=== PATIENT | male | born 1965 | race Two or more races ===

== ENCOUNTER 2017-04-29 14:59 | Inpatient (IN) | payer OTHER ==
[~2017-04-29] VITALS: Ht 175.3 cm; Wt 188.2 kg
[2017-04-29] MEDS ORDERED: SODIUM CHLORIDE 0.9% 1,000 ML IV ONE (15:11)
[2017-04-29] MEDS ORDERED: NALOXONE HCL 1 MG/ML 2ML VIAL IV ONE (15:15)
[2017-04-29 15:47] LABS: BG BASE EXCESS -5.6 mmol/L (-2.0-2.0); BG CARBOXYHEMOGLOBIN 0.5 % (0.5-1.5); BG DEOXYHEMOGLOBIN 2.4 % (0.0-5.0); BG FRACTION INSPIRED OXYGEN 100; BG HCO3 ACT 25.4 mmol/L (22.0-26.0); BG METHEMOGLOBIN 0.5 % (0.0-1.5); BG OXYGEN SATURATION 97.6 % (92.0-98.5); BG OXYHEMOGLOBIN 96.6 % (94.0-97.0); BG PCO2 72.8 mmHg (35.0-45.0); BG PO2 125.6 mmHg (75.0-100.0); BG SAMPLE SITE RIGHT RADIAL; BG TOTAL HEMOGLOBIN 18.2 g/dL (12.0-18.0); BG VENT MODE MASK - NRB
[2017-04-29 15:58] LABS: INR 1.2; PROTHROMBIN TIME 12.9 sec (9.4-11.6)
[2017-04-29 16:03] LABS: AMMONIA 179 uMol/L (<32)
[2017-04-29 16:07] LABS: BASOPHILS % 0.7 % (0.0-2.0); EOSINOPHILS % 1.5 % (0.0-5.0); HEMATOCRIT. 50.4 % (42.0-52.0); LYMPHOCYTES % 23.8 % (20.0-50.0); MEAN CORPUSCULAR HEMOGLOBIN 30.7 pg (28.0-32.0); MEAN CORPUSCULAR VOLUME 91.1 fL (80.0-94.0); MEAN PLATELET VOLUME 9.3 fl (7.4-10.4); PLATELET 90 x1000/uL (130-400); RED BLOOD CELL COUNT 5.53 mill/uL (4.7-6.1); RED CELL DISTRIBUTION WIDTH 14.8 % (11.6-14.6)
[2017-04-29 16:08] LABS: CARBON DIOXIDE 27 mEq/L (21-32); CHLORIDE 108 mEq/L (98-107); CREATINE KINASE 158 IU/L (39-308); ETHANOL BLOOD < 10 mg/dL
[2017-04-29 16:10] LABS: TROPONIN I < 0.02 ng/mL (0.00-0.04)
[2017-04-29] MEDS ORDERED: KETAMINE HCL 50 MG/ML 10ML ONE (16:10)
[2017-04-29] MEDS ORDERED: PROPOFOL 10MG/ML 100ML 100 ML IV ONE ×4 (16:27→22:30)
[2017-04-29] MEDS ORDERED: VANCOMYCIN 1 G PREMIX 200 ML IV SCH (16:45)
[2017-04-29] MEDS ORDERED: PIPERACILLIN/TAZ 3.375G PREMIX 50 ML IV ONE (16:45)
[2017-04-29 17:01] LABS: CLARITY URINE CLOUDY (CLEAR); COLOR URINE DARK YELLOW (YELLOW); KETONES URINE TRACE (NEGATIVE); LEUKOCYTE ESTERASE URINE 2+ (NEGATIVE); NITRITE URINE NEGATIVE (NEGATIVE); OCCULT BLOOD URINE 1+ (NEGATIVE); PROTEIN URINE 3+ (NEGATIVE); SPECIFIC GRAVITY URINE 1.033 (1.005-1.030)
[2017-04-29 17:12] LABS: *AMPHETAMINES SCREEN URINE NEGATIVE (NEGATIVE); *BARBITURATES SCREEN URINE NEGATIVE (NEGATIVE); *BENZODIAZEPINES SCREEN URINE PRESUMTIVE POSITIVE (NEGATIVE); *COCAINE SCREEN URINE NEGATIVE (NEGATIVE); CANNABINOID URINE SCREEN NEGATIVE (NEGATIVE); METHADONE URINE SCREEN NEGATIVE (NEGATIVE); OPIATES URINE SCREEN PRESUMTIVE POSITIVE (NEGATIVE); PHENCYCLIDINE URINE SCREEN NEGATIVE (NEGATIVE)
[2017-04-29] MEDS ORDERED: KETAMINE HCL 50 MG/ML 10ML IM ONE (17:15)
[2017-04-29] MEDS ORDERED: KETAMINE HCL 50 MG/ML 10ML IV ONE (17:15)
[2017-04-29] MEDS ORDERED: VECURONIUM BROMIDE 10 MG/VIAL IV ONE (17:15)
[2017-04-29] MEDS ORDERED: ETOMIDATE 2MG/ML 10ML VIAL IV ONE (17:15)
[2017-04-29] MEDS ORDERED: SUCCINYLCHOLINE CHLORIDE 200MG/10ML VIAL IV ONE (17:15)
[2017-04-29] MEDS ORDERED: ACETAMINOPHEN 650MG SUPP PR PRN (19:45)
[2017-04-29] MEDS ORDERED: GUAIFENESIN 200MG/10ML SUGAR FREE UDC PO PRN (19:45)
[2017-04-29] MEDS ORDERED: DOCUSATE SODIUM 100MG CAPSULE PO PRN (19:45)
[2017-04-29] MEDS ORDERED: MAGNESIUM/ALUMINUM HYDROXIDE/SIMETHICONE 30ML UDC PO PRN (19:45)
[2017-04-29] MEDS ORDERED: NA PHOS,M-B/NA PHOS,DI-BA ENEMA 118ML PR PRN (19:45)
[2017-04-29] MEDS ORDERED: CLONIDINE 0.1MG TABLET PO PRN (19:45)
[2017-04-29] MEDS ORDERED: ONDANSETRON HCL 4MG/2ML VIAL IV PRN (19:45)
[2017-04-29 20:44] LABS: BG BASE EXCESS -1.2 mmol/L (-2.0-2.0); BG CARBOXYHEMOGLOBIN 0.5 % (0.5-1.5); BG DEOXYHEMOGLOBIN 3.5 % (0.0-5.0); BG FRACTION INSPIRED OXYGEN 40; BG HCO3 ACT 24.8 mmol/L (22.0-26.0); BG METHEMOGLOBIN 0.2 % (0.0-1.5); BG OXYGEN SATURATION 96.5 % (92.0-98.5); BG OXYHEMOGLOBIN 95.8 % (94.0-97.0); BG PCO2 46.2 mmHg (35.0-45.0); BG PH 7.348 (7.350-7.450); BG PO2 88.7 mmHg (75.0-100.0); BG SAMPLE SITE RIGHT RADIAL; BG TIDAL VOLUME(mL) 650 mL; BG TOTAL HEMOGLOBIN 14.6 g/dL (12.0-18.0); BG VENT MODE VENT - A/C; BG VENT RATE 14 set
[2017-04-29] MEDS ORDERED: LACTULOSE 20G/30ML UDC NG ONE (21:00)
[2017-04-30] VITALS (70 sets, daily range): BP systolic 116–179; BP diastolic 65–124
[2017-04-30 03:11] LABS: CREATINE KINASE MB FRACTION 1.2 ng/mL (0.5-3.6); TROPONIN I 0.09 ng/mL (0.00-0.04)
[2017-04-30] MEDS ORDERED: PROPOFOL 10MG/ML 100ML 100 ML IV SCH (03:45)
[2017-04-30] MEDS ORDERED: SUCCINYLCHOLINE CHLORIDE 200MG/10ML VIAL IV ONE (04:00)
[2017-04-30] MEDS ORDERED: VECURONIUM BROMIDE 10 MG/VIAL IV ONE (04:00)
[2017-04-30] MEDS ORDERED: STERILE WATER FOR INJECTION 10ML VIAL ONE (04:00)
[2017-04-30] MEDS ORDERED: ETOMIDATE 2MG/ML 10ML VIAL IV ONE (04:00)
[2017-04-30] MEDS ORDERED: PROPOFOL 10MG/ML 100ML 100 ML IV PRN (05:15)
[2017-04-30] MEDS ORDERED: HYDR-4009 PO (05:37)
[2017-04-30] MEDS ORDERED: TIZA4TAB4 PO (05:37)
[2017-04-30] MEDS ORDERED: PROT20 PO (05:37)
[2017-04-30] MEDS ORDERED: FURO80TA87 PO (05:37)
[2017-04-30] MEDS ORDERED: CARI350T PO (05:37)
[2017-04-30] MEDS ORDERED: ALD100 PO (05:37)
[2017-04-30] MEDS ORDERED: POTA10CA42 PO (05:37)
[2017-04-30] MEDS ORDERED: [UNRECOGNIZED DRUG - OTHER] PO (05:37)
[2017-04-30] MEDS ORDERED: LACTULOSE 20G/30ML UDC PO SCH (06:00)
[2017-04-30 06:10] LABS: BASOPHILS % 1.1 % (0.0-2.0); EOSINOPHILS % 2.2 % (0.0-5.0); HEMATOCRIT. 44.2 % (42.0-52.0); HEMOGLOBIN. 15.3 g/dL (14.0-18.0); LYMPHOCYTES % 27.6 % (20.0-50.0); MEAN CORPUSCULAR HEMOGLOBIN 31.5 pg (28.0-32.0); MEAN CORPUSCULAR VOLUME 91.1 fL (80.0-94.0); MEAN PLATELET VOLUME 9.3 fl (7.4-10.4); MONOCYTES % 6.2 % (2.0-8.0); NEUTROPHILS % 62.9 % (40.0-76.0); PLATELET 63 x1000/uL (130-400); RED BLOOD CELL COUNT 4.85 mill/uL (4.7-6.1); RED CELL DISTRIBUTION WIDTH 14.5 % (11.6-14.6)
[2017-04-30 06:36] LABS: CARBON DIOXIDE 26 mEq/L (21-32); CHLORIDE 111 mEq/L (98-107); CREATINE KINASE 270 IU/L (39-308); HDL CHOLESTEROL 24 mg/dL (40-59); LDL CHOLESTEROL 47 mg/dL (5-100)
[2017-04-30 06:39] LABS: CREATINE KINASE MB FRACTION 1.8 ng/mL (0.5-3.6); TROPONIN I 0.07 ng/mL (0.00-0.04)
[2017-04-30] MEDS: SODIUM CHLORIDE 0.9% INJ 3ML FLUSH IVF SCH ×3 (06:46→21:35)
[2017-04-30] MEDS: DEXT 5%/0.45% NACL 1000ML 1,000 ML IV SCH (06:47)
[2017-04-30] MEDS: IPRATROPIUM/ALBUTEROL 0.5-3(2.5)MG/3ML NEB INH PRN ×3 (07:55→20:26)
[2017-04-30] MEDS: FOLIC ACID 1MG TABLET PO SCH (07:58)
[2017-04-30] MEDS: THIAMINE HCL 100MG TABLET PO SCH (07:59)
[2017-04-30] MEDS: ACETAMINOPHEN 650MG/20.3ML UDC PO PRN ×2 (07:59→15:42)
[2017-04-30] MEDS ORDERED: PANTOPRAZOLE SODIUM 40 MG/VIAL IV ONE (09:00)
[2017-04-30] MEDS ORDERED: FENTANYL CITRATE/PF 500 MCG in SODIUM CHLORIDE 0.9% 40 ML IV PRN (09:00)
[2017-04-30 09:07] LABS: BG BASE EXCESS -1.5 mmol/L (-2.0-2.0); BG CARBOXYHEMOGLOBIN 0.7 % (0.5-1.5); BG DEOXYHEMOGLOBIN 7.1 % (0.0-5.0); BG FRACTION INSPIRED OXYGEN 40; BG HCO3 ACT 24.3 mmol/L (22.0-26.0); BG METHEMOGLOBIN 0.5 % (0.0-1.5); BG OXYGEN SATURATION 92.8 % (92.0-98.5); BG OXYHEMOGLOBIN 91.7 % (94.0-97.0); BG PCO2 44.7 mmHg (35.0-45.0); BG PH 7.353 (7.350-7.450); BG PO2 68.7 mmHg (75.0-100.0); BG SAMPLE SITE RIGHT RADIAL; BG TIDAL VOLUME(mL) 550 mL; BG TOTAL HEMOGLOBIN 15.3 g/dL (12.0-18.0); BG VENT MODE VENT - A/C; BG VENT RATE 14 set
[2017-04-30] MEDS ORDERED: CEFEPIME 2,000 MG in DEXT 5% WATER 100 ML IV SCH (09:15)
[2017-04-30] MEDS ORDERED: CEFEPIME 2,000 MG in DEXTROSE 5% WATER 50 ML IV SCH (09:30)
[2017-04-30] MEDS: MIDAZOLAM HCL 50 MG in DEXTROSE 5% WATER 40 ML IV PRN ×2 (09:57→12:19)
[2017-04-30] MEDS: METRONIDAZOLE 500 MG PREMIX 100 ML IV SCH ×2 (09:57→17:25)
[2017-04-30] MEDS: PANTOPRAZOLE SODIUM 40 MG/VIAL IV SCH (10:00)
[2017-04-30] MEDS: DIPHENHYDRAMINE 50MG/ML VIAL IV PRN (12:00)
[2017-04-30] MEDS: CEFEPIME 2,000 MG in DEXTROSE 5% WATER 50 ML IV SCH (12:22)
[2017-04-30] MEDS: LACTULOSE 20G/30ML UDC PO SCH ×2 (14:41→21:35)
[2017-04-30] MEDS ORDERED: MIDAZOLAM HCL 100 MG in DEXT 5% WATER 80 ML IV PRN (14:45)
[2017-04-30] MEDS: FENTANYL CITRATE/PF 1,000 MCG in SODIUM CHLORIDE 0.9% 80 ML IV PRN (15:09)
[2017-04-30] MEDS: MIDAZOLAM HCL 100 MG in SODIUM CHLORIDE 0.9% 80 ML IV PRN (20:32)
[2017-05-01] VITALS (58 sets, daily range): BP systolic 123–174; BP diastolic 62–104
[2017-05-01] MEDS: CEFEPIME 2,000 MG in DEXTROSE 5% WATER 50 ML IV SCH ×2 (00:01→12:05)
[2017-05-01] MEDS: DIPHENHYDRAMINE 50MG/ML VIAL IV PRN ×2 (00:44→07:09)
[2017-05-01] MEDS: FENTANYL CITRATE/PF 1,000 MCG in SODIUM CHLORIDE 0.9% 80 ML IV PRN ×3 (01:00→22:16)
[2017-05-01] MEDS: MIDAZOLAM HCL 100 MG in SODIUM CHLORIDE 0.9% 80 ML IV PRN ×5 (01:46→23:57)
[2017-05-01] MEDS: METRONIDAZOLE 500 MG PREMIX 100 ML IV SCH ×3 (02:23→17:13)
[2017-05-01] MEDS: DEXT 5%/0.45% NACL 1000ML 1,000 ML IV SCH (02:24)
[2017-05-01 06:15] LABS: AMMONIA 57 uMol/L (<32)
[2017-05-01] MEDS: LACTULOSE 20G/30ML UDC PO SCH ×3 (06:21→21:07)
[2017-05-01] MEDS: SODIUM CHLORIDE 0.9% INJ 3ML FLUSH IVF SCH ×3 (06:21→22:00)
[2017-05-01] MEDS: PANTOPRAZOLE SODIUM 40 MG/VIAL IV SCH (08:14)
[2017-05-01] MEDS: THIAMINE HCL 100MG TABLET PO SCH (08:14)
[2017-05-01] MEDS: ACETAMINOPHEN 650MG/20.3ML UDC PO PRN ×3 (08:14→20:59)
[2017-05-01] MEDS: FOLIC ACID 1MG TABLET PO SCH (08:14)
[2017-05-01 08:47] LABS: BG BASE EXCESS 0.1 mmol/L (-2.0-2.0); BG CARBOXYHEMOGLOBIN 0.4 % (0.5-1.5); BG DEOXYHEMOGLOBIN 4.8 % (0.0-5.0); BG FRACTION INSPIRED OXYGEN 40; BG HCO3 ACT 24.6 mmol/L (22.0-26.0); BG METHEMOGLOBIN 0.1 % (0.0-1.5); BG OXYGEN SATURATION 95.2 % (92.0-98.5); BG OXYHEMOGLOBIN 94.7 % (94.0-97.0); BG PCO2 39.7 mmHg (35.0-45.0); BG SAMPLE SITE RIGHT RADIAL; BG TIDAL VOLUME(mL) 550 mL; BG TOTAL HEMOGLOBIN 14.5 g/dL (12.0-18.0); BG VENT MODE VENT - A/C; BG VENT RATE 14 set
[2017-05-01] MEDS: PROPOFOL 10MG/ML 100ML 100 ML IV PRN ×3 (10:27→21:37)
[2017-05-01 15:06] LABS: BG BASE EXCESS -0.1 mmol/L (-2.0-2.0); BG CARBOXYHEMOGLOBIN 0.7 % (0.5-1.5); BG DEOXYHEMOGLOBIN 4.5 % (0.0-5.0); BG FRACTION INSPIRED OXYGEN 40; BG HCO3 ACT 25.2 mmol/L (22.0-26.0); BG METHEMOGLOBIN 0.2 % (0.0-1.5); BG OXYGEN SATURATION 95.5 % (92.0-98.5); BG OXYHEMOGLOBIN 94.6 % (94.0-97.0); BG PH 7.385 (7.350-7.450); BG PO2 77.1 mmHg (75.0-100.0); BG PRESSURE SUPPORT 12; BG SAMPLE SITE RIGHT RADIAL; BG TIDAL VOLUME(mL) 550 mL; BG TOTAL HEMOGLOBIN 14.4 g/dL (12.0-18.0); BG VENT MODE VENT - SIMV; BG VENT RATE 8 set
[2017-05-01] MEDS: QUETIAPINE FUMARATE 25MG TABLET NG SCH (20:54)
[2017-05-02] VITALS (40 sets, daily range): BP systolic 120–151; BP diastolic 66–88
[2017-05-02] MEDS: DEXT 5%/0.45% NACL 1000ML 1,000 ML IV SCH
[2017-05-02] MEDS: CEFEPIME 2,000 MG in DEXTROSE 5% WATER 50 ML IV SCH ×2 (01:06→13:10)
[2017-05-02] MEDS: METRONIDAZOLE 500 MG PREMIX 100 ML IV SCH ×3 (02:34→17:55)
[2017-05-02] MEDS: MIDAZOLAM HCL 100 MG in SODIUM CHLORIDE 0.9% 80 ML IV PRN (04:48)
[2017-05-02] MEDS: PROPOFOL 10MG/ML 100ML 100 ML IV PRN (04:52)
[2017-05-02] MEDS: SODIUM CHLORIDE 0.9% INJ 3ML FLUSH IVF SCH ×2 (05:07→13:11)
[2017-05-02] MEDS: LACTULOSE 20G/30ML UDC PO SCH ×3 (05:07→21:32)
[2017-05-02 05:12] LABS: BASOPHILS % 0.5 % (0.0-2.0); EOSINOPHILS % 4.3 % (0.0-5.0); HEMATOCRIT. 41.2 % (42.0-52.0); HEMOGLOBIN. 13.9 g/dL (14.0-18.0); LYMPHOCYTES % 15.2 % (20.0-50.0); MEAN CORPUSCULAR HEMOGLOBIN 30.7 pg (28.0-32.0); MEAN CORPUSCULAR VOLUME 90.8 fL (80.0-94.0); MEAN PLATELET VOLUME 8.7 fl (7.4-10.4); MONOCYTES % 8.5 % (2.0-8.0); NEUTROPHILS % 71.5 % (40.0-76.0); RED BLOOD CELL COUNT 4.53 mill/uL (4.7-6.1); RED CELL DISTRIBUTION WIDTH 14.5 % (11.6-14.6)
[2017-05-02 05:55] LABS: CARBON DIOXIDE 27 mEq/L (21-32); CHLORIDE 114 mEq/L (98-107)
[2017-05-02 06:04] LABS: PLATELET 45 x1000/uL (130-400)
[2017-05-02 06:11] LABS: AMMONIA 100 uMol/L (<32)
[2017-05-02] MEDS: FENTANYL CITRATE/PF 1,000 MCG in SODIUM CHLORIDE 0.9% 80 ML IV PRN (07:04)
[2017-05-02] MEDS: THIAMINE HCL 100MG TABLET PO SCH (08:24)
[2017-05-02] MEDS: FOLIC ACID 1MG TABLET PO SCH (08:24)
[2017-05-02] MEDS: QUETIAPINE FUMARATE 25MG TABLET NG SCH ×2 (08:24→21:32)
[2017-05-02] MEDS: PANTOPRAZOLE SODIUM 40 MG/VIAL IV SCH (08:24)
[2017-05-02] MEDS ORDERED: DEXTROSE 50% WATER 50ML SYRINGE IV PRN (08:30)
[2017-05-02] MEDS: BLOOD SUGAR DIAGNOSTIC STRIP TEST SCH ×2 (13:09→17:34)
[2017-05-02] MEDS: INSULIN LISPRO 100 UNITS/ML SUBCUT SCH ×3 (13:15→21:00)
[2017-05-02 14:53] LABS: BG BASE EXCESS -0.1 mmol/L (-2.0-2.0); BG CARBOXYHEMOGLOBIN 0.6 % (0.5-1.5); BG HCO3 ACT 23.7 mmol/L (22.0-26.0); BG METHEMOGLOBIN 0.2 % (0.0-1.5); BG OXYHEMOGLOBIN 95.2 % (94.0-97.0); BG PCO2 36.3 mmHg (35.0-45.0); BG PH 7.433 (7.350-7.450); BG PO2 76.9 mmHg (75.0-100.0); BG SAMPLE SITE RIGHT RADIAL; BG TIDAL VOLUME(mL) 550 mL; BG TOTAL HEMOGLOBIN 14.8 g/dL (12.0-18.0); BG VENT MODE VENT - SIMV; BG VENT RATE 8 set
[2017-05-02] MEDS: IPRATROPIUM/ALBUTEROL 0.5-3(2.5)MG/3ML NEB INH PRN (19:51)
[2017-05-02] MEDS: ACETAMINOPHEN 650MG/20.3ML UDC PO PRN (21:32)
[2017-05-03] VITALS (39 sets, daily range): BP systolic 96–152; BP diastolic 57–92
[2017-05-03] MEDS: SODIUM CHLORIDE 0.9% INJ 3ML FLUSH IVF SCH ×4 (00:27→20:26)
[2017-05-03] MEDS: CEFEPIME 2,000 MG in DEXTROSE 5% WATER 50 ML IV SCH ×2 (00:27→11:26)
[2017-05-03] MEDS: METRONIDAZOLE 500 MG PREMIX 100 ML IV SCH ×3 (02:50→17:44)
[2017-05-03] MEDS: IPRATROPIUM/ALBUTEROL 0.5-3(2.5)MG/3ML NEB INH PRN ×3 (03:56→15:09)
[2017-05-03 06:21] LABS: AMMONIA 93 uMol/L (<32)
[2017-05-03] MEDS: LACTULOSE 20G/30ML UDC PO SCH ×3 (06:21→20:25)
[2017-05-03 07:36] LABS: BASOPHILS % 1.7 % (0.0-2.0); EOSINOPHILS % 4.7 % (0.0-5.0); HEMATOCRIT. 42.3 % (42.0-52.0); HEMOGLOBIN. 14.2 g/dL (14.0-18.0); LYMPHOCYTES % 21.1 % (20.0-50.0); MEAN CORPUSCULAR HEMOGLOBIN 30.9 pg (28.0-32.0); MEAN CORPUSCULAR VOLUME 92.1 fL (80.0-94.0); MEAN PLATELET VOLUME 9.1 fl (7.4-10.4); MONOCYTES % 7.8 % (2.0-8.0); NEUTROPHILS % 64.7 % (40.0-76.0); PLATELET 56 x1000/uL (130-400); RED CELL DISTRIBUTION WIDTH 14.5 % (11.6-14.6)
[2017-05-03] MEDS: BLOOD SUGAR DIAGNOSTIC STRIP TEST SCH ×2 (08:13→17:37)
[2017-05-03] MEDS: QUETIAPINE FUMARATE 25MG TABLET NG SCH ×3 (08:13→20:25)
[2017-05-03] MEDS: THIAMINE HCL 100MG TABLET PO SCH (08:21)
[2017-05-03] MEDS: PANTOPRAZOLE SODIUM 40 MG/VIAL IV SCH (08:21)
[2017-05-03] MEDS: FOLIC ACID 1MG TABLET PO SCH (08:21)
[2017-05-03] MEDS: INSULIN LISPRO 100 UNITS/ML SUBCUT SCH ×2 (08:24→17:49)
[2017-05-03] MEDS: FENTANYL CITRATE/PF 1,000 MCG in SODIUM CHLORIDE 0.9% 80 ML IV PRN ×2 (09:00→23:02)
[2017-05-03 10:56] LABS: CARBON DIOXIDE 23 mEq/L (21-32); CHLORIDE 114 mEq/L (98-107); PHOSPHORUS 1.7 mg/dL (2.5-4.9)
[2017-05-03] MEDS ORDERED: FUROSEMIDE 40MG/4ML VIAL IVP NR (11:00)
[2017-05-03] MEDS: DIPHENHYDRAMINE 50MG/ML VIAL IV PRN (11:53)
[2017-05-03 12:19] LABS: BG BASE EXCESS 1.2 mmol/L (-2.0-2.0); BG CARBOXYHEMOGLOBIN 0.4 % (0.5-1.5); BG DEOXYHEMOGLOBIN 5.8 % (0.0-5.0); BG FRACTION INSPIRED OXYGEN 35; BG HCO3 ACT 25.7 mmol/L (22.0-26.0); BG METHEMOGLOBIN 0.1 % (0.0-1.5); BG OXYGEN SATURATION 94.2 % (92.0-98.5); BG OXYHEMOGLOBIN 93.7 % (94.0-97.0); BG PCO2 40.7 mmHg (35.0-45.0); BG PH 7.419 (7.350-7.450); BG PO2 68.8 mmHg (75.0-100.0); BG PRESSURE SUPPORT 12; BG SAMPLE SITE RIGHT BRACHIAL; BG TIDAL VOLUME(mL) 550 mL; BG TOTAL HEMOGLOBIN 14.2 g/dL (12.0-18.0); BG VENT MODE VENT - SIMV; BG VENT RATE 8 set
[2017-05-03] MEDS ORDERED: BLOOD SUGAR DIAGNOSTIC STRIP TEST SCH (14:00)
[2017-05-03] MEDS ORDERED: INSULIN LISPRO 100 UNITS/ML SUBCUT SCH (14:00)
[2017-05-03] MEDS ORDERED: SODIUM PHOS,M-BASIC-D-BASIC 10 MM in DEXT 5% WATER 246.6667 ML IV NR (15:00)
[2017-05-04] VITALS (47 sets, daily range): BP systolic 101–174; BP diastolic 59–107
[2017-05-04] MEDS: BLOOD SUGAR DIAGNOSTIC STRIP TEST SCH ×4 (00:22→18:00)
[2017-05-04] MEDS: DIPHENHYDRAMINE 50MG/ML VIAL IV PRN (00:40)
[2017-05-04] MEDS: LACTULOSE 20G/30ML UDC PO SCH ×4 (00:40→13:53)
[2017-05-04] MEDS: ACETAMINOPHEN 650MG/20.3ML UDC PO PRN ×2 (00:40→16:07)
[2017-05-04] MEDS: CEFEPIME 2,000 MG in DEXTROSE 5% WATER 50 ML IV SCH ×2 (00:40→13:04)
[2017-05-04] MEDS: INSULIN LISPRO 100 UNITS/ML SUBCUT SCH ×4 (00:46→19:18)
[2017-05-04] MEDS: METRONIDAZOLE 500 MG PREMIX 100 ML IV SCH ×3 (02:31→19:16)
[2017-05-04] MEDS: IPRATROPIUM/ALBUTEROL 0.5-3(2.5)MG/3ML NEB INH PRN (02:55)
[2017-05-04] MEDS: SODIUM CHLORIDE 0.9% INJ 3ML FLUSH IVF SCH ×2 (06:00→13:06)
[2017-05-04] MEDS: FENTANYL CITRATE/PF 1,000 MCG in SODIUM CHLORIDE 0.9% 80 ML IV PRN ×3 (06:38→22:19)
[2017-05-04 08:06] LABS: BASOPHILS % 1.1 % (0.0-2.0); EOSINOPHILS % 5.3 % (0.0-5.0); HEMATOCRIT. 41.3 % (42.0-52.0); HEMOGLOBIN. 13.7 g/dL (14.0-18.0); LYMPHOCYTES % 33.5 % (20.0-50.0); MEAN CORPUSCULAR HEMOGLOBIN 30.4 pg (28.0-32.0); MEAN CORPUSCULAR VOLUME 91.7 fL (80.0-94.0); MEAN PLATELET VOLUME 8.4 fl (7.4-10.4); MONOCYTES % 7.7 % (2.0-8.0); NEUTROPHILS % 52.4 % (40.0-76.0); PLATELET 53 x1000/uL (130-400); RED BLOOD CELL COUNT 4.51 mill/uL (4.7-6.1); RED CELL DISTRIBUTION WIDTH 14.4 % (11.6-14.6)
[2017-05-04] MEDS: THIAMINE HCL 100MG TABLET PO SCH (08:22)
[2017-05-04] MEDS: FOLIC ACID 1MG TABLET PO SCH (08:22)
[2017-05-04] MEDS: FUROSEMIDE 40MG/4ML VIAL IVP SCH (08:22)
[2017-05-04] MEDS: QUETIAPINE FUMARATE 25MG TABLET NG SCH ×2 (08:22→21:02)
[2017-05-04] MEDS: PANTOPRAZOLE SODIUM 40 MG/VIAL IV SCH (08:22)
[2017-05-04 09:15] LABS: AMMONIA 56 uMol/L (<32)
[2017-05-04 09:17] LABS: CARBON DIOXIDE 31 mEq/L (21-32); CHLORIDE 113 mEq/L (98-107)
[2017-05-04] MEDS: MIDAZOLAM HCL 100 MG in SODIUM CHLORIDE 0.9% 80 ML IV PRN ×3 (10:24→21:03)
[2017-05-04 11:27] LABS: BG BASE EXCESS 4.2 mmol/L (-2.0-2.0); BG CARBOXYHEMOGLOBIN 0.3 % (0.5-1.5); BG DEOXYHEMOGLOBIN 3.3 % (0.0-5.0); BG FRACTION INSPIRED OXYGEN 60; BG HCO3 ACT 28.9 mmol/L (22.0-26.0); BG METHEMOGLOBIN 0.5 % (0.0-1.5); BG OXYGEN SATURATION 96.7 % (92.0-98.5); BG OXYHEMOGLOBIN 95.9 % (94.0-97.0); BG PCO2 43.2 mmHg (35.0-45.0); BG PH 7.443 (7.350-7.450); BG PO2 89.8 mmHg (75.0-100.0); BG SAMPLE SITE RIGHT RADIAL; BG TIDAL VOLUME(mL) 550 mL; BG TOTAL HEMOGLOBIN 14.6 g/dL (12.0-18.0); BG VENT MODE VENT - A/C; BG VENT RATE 12 set
[2017-05-05] VITALS (43 sets, daily range): BP systolic 96–139; BP diastolic 57–86
[2017-05-05] MEDS: LACTULOSE 20G/30ML UDC PO SCH ×4 (01:23→21:31)
[2017-05-05] MEDS: CEFEPIME 2,000 MG in DEXTROSE 5% WATER 50 ML IV SCH ×2 (01:23→12:49)
[2017-05-05] MEDS: METRONIDAZOLE 500 MG PREMIX 100 ML IV SCH ×3 (03:28→18:19)
[2017-05-05] MEDS: MIDAZOLAM HCL 100 MG in SODIUM CHLORIDE 0.9% 80 ML IV PRN ×2 (04:06→23:26)
[2017-05-05 05:28] LABS: BASOPHILS % 0.7 % (0.0-2.0); EOSINOPHILS % 4.4 % (0.0-5.0); HEMATOCRIT. 41.6 % (42.0-52.0); HEMOGLOBIN. 13.7 g/dL (14.0-18.0); MEAN CORPUSCULAR HEMOGLOBIN 30.5 pg (28.0-32.0); MEAN CORPUSCULAR VOLUME 92.5 fL (80.0-94.0); MONOCYTES % 6.4 % (2.0-8.0); NEUTROPHILS % 71.5 % (40.0-76.0); RED CELL DISTRIBUTION WIDTH 14.5 % (11.6-14.6)
[2017-05-05 05:35] LABS: PLATELET 50 x1000/uL (130-400)
[2017-05-05 05:39] LABS: AMMONIA 67 uMol/L (<32)
[2017-05-05 05:43] LABS: CARBON DIOXIDE 32 mEq/L (21-32); CHLORIDE 115 mEq/L (98-107); PHOSPHORUS 3.3 mg/dL (2.5-4.9)
[2017-05-05 05:54] LABS: D-DIMER 3.59 mg/L FEU (<0.50); INR 1.4; PROTHROMBIN TIME 15.1 sec (9.4-11.6)
[2017-05-05] MEDS: BLOOD SUGAR DIAGNOSTIC STRIP TEST SCH ×4 (06:00→18:24)
[2017-05-05] MEDS: SODIUM CHLORIDE 0.9% INJ 3ML FLUSH IVF SCH ×4 (06:41→23:13)
[2017-05-05] MEDS: INSULIN LISPRO 100 UNITS/ML SUBCUT SCH ×4 (07:18→18:00)
[2017-05-05] MEDS ORDERED: DIATR MEGLU/DIATRIZOATE SOLN 30ML PO SCH ×2 (08:30→11:30)
[2017-05-05 09:46] LABS: BG BASE EXCESS 0.6 mmol/L (-2.0-2.0); BG CARBOXYHEMOGLOBIN 0.3 % (0.5-1.5); BG DEOXYHEMOGLOBIN 3.6 % (0.0-5.0); BG FRACTION INSPIRED OXYGEN 60; BG HCO3 ACT 26.7 mmol/L (22.0-26.0); BG METHEMOGLOBIN 0.1 % (0.0-1.5); BG OXYGEN SATURATION 96.4 % (92.0-98.5); BG PCO2 48.4 mmHg (35.0-45.0); BG PH 7.359 (7.350-7.450); BG PO2 91.5 mmHg (75.0-100.0); BG SAMPLE SITE RIGHT RADIAL; BG TIDAL VOLUME(mL) 550 mL; BG TOTAL HEMOGLOBIN 13.7 g/dL (12.0-18.0); BG VENT MODE VENT - A/C; BG VENT RATE 12 set
[2017-05-05] MEDS: THIAMINE HCL 100MG TABLET PO SCH (10:15)
[2017-05-05] MEDS: QUETIAPINE FUMARATE 25MG TABLET NG SCH ×2 (10:15→21:31)
[2017-05-05] MEDS: PANTOPRAZOLE SODIUM 40 MG/VIAL IV SCH (10:15)
[2017-05-05] MEDS: FUROSEMIDE 40MG/4ML VIAL IVP SCH (10:15)
[2017-05-05] MEDS: IPRATROPIUM/ALBUTEROL 0.5-3(2.5)MG/3ML NEB HHN SCH ×3 (12:03→20:12)
[2017-05-05] MEDS: ACETAMINOPHEN 650MG/20.3ML UDC PO PRN ×2 (13:24→21:31)
[2017-05-05] MEDS: ACETYLCYSTEINE 100MG/ML 10% VIAL 4ML INH SCH (16:45)
[2017-05-05] MEDS ORDERED: IOHEXOL-350 100 ML BOTTLE ONE (18:02)
[2017-05-05] MEDS ORDERED: VANCOMYCIN 2,000 MG in DEXT 5% WATER 500 ML IV NR (22:00)
[2017-05-06] VITALS (49 sets, daily range): BP systolic 96–138; BP diastolic 50–80
[2017-05-06] MEDS: IPRATROPIUM/ALBUTEROL 0.5-3(2.5)MG/3ML NEB HHN SCH ×6 (00:04→20:00)
[2017-05-06] MEDS: ACETYLCYSTEINE 100MG/ML 10% VIAL 4ML INH SCH ×3 (00:04→15:30)
[2017-05-06] MEDS: INSULIN LISPRO 100 UNITS/ML SUBCUT SCH ×5 (00:41→23:51)
[2017-05-06] MEDS: FENTANYL CITRATE/PF 1,000 MCG in SODIUM CHLORIDE 0.9% 80 ML IV PRN ×2 (01:00→14:48)
[2017-05-06] MEDS: CEFEPIME 2,000 MG in DEXTROSE 5% WATER 50 ML IV SCH (01:28)
[2017-05-06] MEDS: METRONIDAZOLE 500 MG PREMIX 100 ML IV SCH (02:25)
[2017-05-06] MEDS ORDERED: VANCOMYCIN 1 G PREMIX 200 ML IV SCH (06:00)
[2017-05-06] MEDS: BLOOD SUGAR DIAGNOSTIC STRIP TEST SCH ×5 (06:00→23:37)
[2017-05-06 06:07] LABS: AMMONIA 59 uMol/L (<32); CARBON DIOXIDE 31 mEq/L (21-32); CHLORIDE 116 mEq/L (98-107); PHOSPHORUS 2.9 mg/dL (2.5-4.9)
[2017-05-06 06:12] LABS: BASOPHILS % 0.6 % (0.0-2.0); HEMATOCRIT. 42.1 % (42.0-52.0); HEMOGLOBIN. 14.1 g/dL (14.0-18.0); LYMPHOCYTES % 16.4 % (20.0-50.0); MEAN CORPUSCULAR HEMOGLOBIN 30.9 pg (28.0-32.0); MEAN CORPUSCULAR VOLUME 92.4 fL (80.0-94.0); MEAN PLATELET VOLUME 8.9 fl (7.4-10.4); MONOCYTES % 8.6 % (2.0-8.0); NEUTROPHILS % 73.4 % (40.0-76.0); PLATELET 58 x1000/uL (130-400); RED BLOOD CELL COUNT 4.55 mill/uL (4.7-6.1); RED CELL DISTRIBUTION WIDTH 14.6 % (11.6-14.6)
[2017-05-06] MEDS: LACTULOSE 20G/30ML UDC PO SCH ×3 (06:12→22:04)
[2017-05-06] MEDS: SODIUM CHLORIDE 0.9% INJ 3ML FLUSH IVF SCH ×3 (06:13→22:04)
[2017-05-06] MEDS: ACETAMINOPHEN 650MG/20.3ML UDC PO PRN ×3 (06:13→22:04)
[2017-05-06] MEDS: FUROSEMIDE 40MG/4ML VIAL IVP SCH (09:26)
[2017-05-06] MEDS: PANTOPRAZOLE SODIUM 40 MG/VIAL IV SCH (09:26)
[2017-05-06] MEDS: THIAMINE HCL 100MG TABLET PO SCH (09:26)
[2017-05-06] MEDS: QUETIAPINE FUMARATE 25MG TABLET NG SCH (09:26)
[2017-05-06] MEDS: MIDAZOLAM HCL 100 MG in SODIUM CHLORIDE 0.9% 80 ML IV PRN ×3 (10:11→21:08)
[2017-05-06] MEDS: MEROPENEM 1,000 MG in SODIUM CHLORIDE 0.9% 100 ML IV SCH ×2 (10:36→18:31)
[2017-05-06 12:05] LABS: BG CARBOXYHEMOGLOBIN 0.1 % (0.5-1.5); BG DEOXYHEMOGLOBIN 5.3 % (0.0-5.0); BG HCO3 ACT 30.7 mmol/L (22.0-26.0); BG METHEMOGLOBIN 0.2 % (0.0-1.5); BG OXYGEN SATURATION 94.7 % (92.0-98.5); BG OXYHEMOGLOBIN 94.4 % (94.0-97.0); BG PCO2 49.3 mmHg (35.0-45.0); BG PH 7.412 (7.350-7.450); BG PO2 73.1 mmHg (75.0-100.0); BG SAMPLE SITE RIGHT RADIAL; BG TIDAL VOLUME(mL) 550 mL; BG TOTAL HEMOGLOBIN 13.8 g/dL (12.0-18.0); BG VENT MODE VENT - A/C; BG VENT RATE 12 set
[2017-05-06] MEDS: VANCOMYCIN 1 G PREMIX 200 ML IV SCH (14:59)
[2017-05-06] MEDS: QUETIAPINE FUMARATE 50MG TABLET NG SCH (22:04)
[2017-05-07] VITALS (93 sets, daily range): BP systolic 79–133; BP diastolic 33–76
[2017-05-07] MEDS ORDERED: DILTIAZEM HCL 5MG/ML 5ML VIAL IV SCH (01:30)
[2017-05-07] MEDS: DILTIAZEM HCL 125 MG in SODIUM CHLORIDE 0.9% 100 ML IV PRN ×2 (01:31→12:53)
[2017-05-07] MEDS: MEROPENEM 1,000 MG in SODIUM CHLORIDE 0.9% 100 ML IV SCH ×3 (01:43→17:19)
[2017-05-07] MEDS: FENTANYL CITRATE/PF 1,000 MCG in SODIUM CHLORIDE 0.9% 80 ML IV PRN (03:36)
[2017-05-07 04:30] LABS: CLARITY URINE CLOUDY (CLEAR); COLOR URINE DARK YELLOW (YELLOW); KETONES URINE TRACE (NEGATIVE); LEUKOCYTE ESTERASE URINE 1+ (NEGATIVE); NITRITE URINE POSITIVE (NEGATIVE); OCCULT BLOOD URINE 3+ (NEGATIVE); PH URINE 5.5 (4.5-8.0); PROTEIN URINE 2+ (NEGATIVE)
[2017-05-07] MEDS: IPRATROPIUM/ALBUTEROL 0.5-3(2.5)MG/3ML NEB HHN SCH ×6 (04:57→20:14)
[2017-05-07 05:01] LABS: BASOPHILS % 0.6 % (0.0-2.0); EOSINOPHILS % 1.9 % (0.0-5.0); HEMATOCRIT. 45.6 % (42.0-52.0); HEMOGLOBIN. 14.9 g/dL (14.0-18.0); LYMPHOCYTES % 17.1 % (20.0-50.0); MEAN CORPUSCULAR HEMOGLOBIN 30.9 pg (28.0-32.0); MEAN CORPUSCULAR VOLUME 94.7 fL (80.0-94.0); MEAN PLATELET VOLUME 9.2 fl (7.4-10.4); MONOCYTES % 6.7 % (2.0-8.0); NEUTROPHILS % 73.7 % (40.0-76.0); PLATELET 60 x1000/uL (130-400); RED BLOOD CELL COUNT 4.82 mill/uL (4.7-6.1); RED CELL DISTRIBUTION WIDTH 15.4 % (11.6-14.6)
[2017-05-07] MEDS: BLOOD SUGAR DIAGNOSTIC STRIP TEST SCH ×4 (05:18→23:25)
[2017-05-07 05:46] LABS: VANCOMYCIN TROUGH 12.2 ug/mL (5.0-10.0)
[2017-05-07] MEDS: INSULIN LISPRO 100 UNITS/ML SUBCUT SCH ×4 (06:43→23:25)
[2017-05-07] MEDS: ACETAMINOPHEN 650MG/20.3ML UDC PO PRN ×2 (06:43→12:53)
[2017-05-07] MEDS: LACTULOSE 20G/30ML UDC PO SCH ×3 (06:43→21:02)
[2017-05-07] MEDS: VANCOMYCIN 1 G PREMIX 200 ML IV SCH (06:43)
[2017-05-07] MEDS: MIDAZOLAM HCL 100 MG in SODIUM CHLORIDE 0.9% 80 ML IV PRN (06:44)
[2017-05-07] MEDS: SODIUM CHLORIDE 0.9% INJ 3ML FLUSH IVF SCH ×3 (06:45→21:07)
[2017-05-07 07:39] LABS: PHOSPHORUS 3.4 mg/dL (2.5-4.9)
[2017-05-07] MEDS: PANTOPRAZOLE SODIUM 40 MG/VIAL IV SCH (08:23)
[2017-05-07] MEDS: QUETIAPINE FUMARATE 50MG TABLET NG SCH ×2 (08:23→21:02)
[2017-05-07] MEDS: THIAMINE HCL 100MG TABLET PO SCH (08:23)
[2017-05-07 08:57] LABS: TROPONIN I 0.03 ng/mL (0.00-0.04)
[2017-05-07] MEDS: DILTIAZEM HCL 30MG TABLET PO SCH ×3 (09:15→21:03)
[2017-05-07 09:41] LABS: BG BASE EXCESS 3.2 mmol/L (-2.0-2.0); BG CARBOXYHEMOGLOBIN 0.7 % (0.5-1.5); BG DEOXYHEMOGLOBIN 4.6 % (0.0-5.0); BG FRACTION INSPIRED OXYGEN 60; BG HCO3 ACT 28.3 mmol/L (22.0-26.0); BG METHEMOGLOBIN 0.4 % (0.0-1.5); BG OXYGEN SATURATION 95.3 % (92.0-98.5); BG OXYHEMOGLOBIN 94.3 % (94.0-97.0); BG PH 7.417 (7.350-7.450); BG SAMPLE SITE RIGHT RADIAL; BG TIDAL VOLUME(mL) 550 mL; BG TOTAL HEMOGLOBIN 14.5 g/dL (12.0-18.0); BG VENT MODE VENT - A/C; BG VENT RATE 12 set
[2017-05-07] MEDS: VANCOMYCIN 1500MG in DEXTROSE 5% WATER 250ML IV SCH (17:19)
[2017-05-07] MEDS: METRONIDAZOLE 500MG TABLET PO SCH (21:07)
[2017-05-08] VITALS (92 sets, daily range): BP systolic 91–136; BP diastolic 40–71
[2017-05-08] MEDS: IPRATROPIUM/ALBUTEROL 0.5-3(2.5)MG/3ML NEB HHN SCH ×6 (00:26→20:01)
[2017-05-08] MEDS: DILTIAZEM HCL 125 MG in SODIUM CHLORIDE 0.9% 100 ML IV PRN ×2 (00:49→14:42)
[2017-05-08] MEDS: MEROPENEM 1,000 MG in SODIUM CHLORIDE 0.9% 100 ML IV SCH ×3 (01:50→17:13)
[2017-05-08 05:22] LABS: AMMONIA 55 uMol/L (<32)
[2017-05-08] MEDS: DILTIAZEM HCL 30MG TABLET PO SCH (06:00)
[2017-05-08] MEDS: LACTULOSE 20G/30ML UDC PO SCH ×3 (06:21→21:34)
[2017-05-08] MEDS: METRONIDAZOLE 500MG TABLET PO SCH ×3 (06:21→21:35)
[2017-05-08] MEDS: VANCOMYCIN 1500MG in DEXTROSE 5% WATER 250ML IV SCH ×2 (06:22→17:13)
[2017-05-08] MEDS: SODIUM CHLORIDE 0.9% INJ 3ML FLUSH IVF SCH ×3 (06:22→21:35)
[2017-05-08] MEDS: BLOOD SUGAR DIAGNOSTIC STRIP TEST SCH ×4 (06:22→23:33)
[2017-05-08] MEDS: INSULIN LISPRO 100 UNITS/ML SUBCUT SCH ×4 (06:23→23:33)
[2017-05-08 07:31] LABS: BG CARBOXYHEMOGLOBIN 1.1 % (0.5-1.5); BG DEOXYHEMOGLOBIN 4.8 % (0.0-5.0); BG HCO3 ACT 28.1 mmol/L (22.0-26.0); BG METHEMOGLOBIN 0.4 % (0.0-1.5); BG OXYGEN SATURATION 95.1 % (92.0-98.5); BG OXYHEMOGLOBIN 93.7 % (94.0-97.0); BG PCO2 44.7 mmHg (35.0-45.0); BG PH 7.416 (7.350-7.450); BG PO2 76.8 mmHg (75.0-100.0); BG SAMPLE SITE RIGHT RADIAL; BG TIDAL VOLUME(mL) 550 mL; BG TOTAL HEMOGLOBIN 14.8 g/dL (12.0-18.0); BG VENT MODE VENT - A/C; BG VENT RATE 12 set
[2017-05-08] MEDS: PANTOPRAZOLE SODIUM 40 MG/VIAL IV SCH (08:22)
[2017-05-08] MEDS: QUETIAPINE FUMARATE 50MG TABLET NG SCH (08:22)
[2017-05-08] MEDS: THIAMINE HCL 100MG TABLET PO SCH (08:23)
[2017-05-08 08:29] LABS: BASOPHILS % 0.7 % (0.0-2.0); EOSINOPHILS % 3.7 % (0.0-5.0); HEMATOCRIT. 43.4 % (42.0-52.0); HEMOGLOBIN. 14.2 g/dL (14.0-18.0); LYMPHOCYTES % 16.6 % (20.0-50.0); MEAN CORPUSCULAR HEMOGLOBIN 30.9 pg (28.0-32.0); MEAN CORPUSCULAR VOLUME 94.3 fL (80.0-94.0); MEAN PLATELET VOLUME 9.9 fl (7.4-10.4); MONOCYTES % 6.9 % (2.0-8.0); NEUTROPHILS % 72.1 % (40.0-76.0); PLATELET 63 x1000/uL (130-400); RED CELL DISTRIBUTION WIDTH 15.2 % (11.6-14.6)
[2017-05-08] MEDS ORDERED: SPIRONOLACTONE 25MG TABLET PO SCH (09:00)
[2017-05-08] MEDS ORDERED: FUROSEMIDE 20MG/2ML VIAL IVP SCH (09:00)
[2017-05-08 10:06] LABS: PHOSPHORUS 3.8 mg/dL (2.5-4.9)
[2017-05-09] VITALS (89 sets, daily range): BP systolic 108–145; BP diastolic 43–98
[2017-05-09] MEDS: IPRATROPIUM/ALBUTEROL 0.5-3(2.5)MG/3ML NEB HHN SCH ×4 (00:54→23:40)
[2017-05-09] MEDS: MEROPENEM 1,000 MG in SODIUM CHLORIDE 0.9% 100 ML IV SCH ×3 (01:49→17:22)
[2017-05-09 05:13] LABS: BASOPHILS % 0.7 % (0.0-2.0); EOSINOPHILS % 2.4 % (0.0-5.0); HEMATOCRIT. 45.5 % (42.0-52.0); HEMOGLOBIN. 14.6 g/dL (14.0-18.0); LYMPHOCYTES % 15.2 % (20.0-50.0); MEAN CORPUSCULAR HEMOGLOBIN 30.8 pg (28.0-32.0); MEAN CORPUSCULAR VOLUME 95.8 fL (80.0-94.0); MONOCYTES % 6.4 % (2.0-8.0); NEUTROPHILS % 75.3 % (40.0-76.0); PLATELET 74 x1000/uL (130-400); RED BLOOD CELL COUNT 4.76 mill/uL (4.7-6.1); RED CELL DISTRIBUTION WIDTH 15.8 % (11.6-14.6)
[2017-05-09 05:41] LABS: AMMONIA 72 uMol/L (<32)
[2017-05-09 05:45] LABS: VANCOMYCIN TROUGH 24.5 ug/mL (5.0-10.0)
[2017-05-09] MEDS: VANCOMYCIN 1500MG in DEXTROSE 5% WATER 250ML IV SCH (06:27)
[2017-05-09] MEDS: METRONIDAZOLE 500MG TABLET PO SCH ×3 (06:27→22:41)
[2017-05-09] MEDS: LACTULOSE 20G/30ML UDC PO SCH ×3 (06:27→22:41)
[2017-05-09] MEDS: INSULIN LISPRO 100 UNITS/ML SUBCUT SCH ×3 (06:28→17:22)
[2017-05-09] MEDS: BLOOD SUGAR DIAGNOSTIC STRIP TEST SCH ×3 (06:28→17:17)
[2017-05-09] MEDS: SODIUM CHLORIDE 0.9% INJ 3ML FLUSH IVF SCH ×3 (06:59→22:42)
[2017-05-09] MEDS: PANTOPRAZOLE SODIUM 40 MG/VIAL IV SCH ×2 (08:14→22:41)
[2017-05-09] MEDS: THIAMINE HCL 100MG TABLET PO SCH (08:14)
[2017-05-09] MEDS: DILTIAZEM HCL 125 MG in SODIUM CHLORIDE 0.9% 100 ML IV PRN (09:59)
[2017-05-09] MEDS: SODIUM CHLORIDE 0.45% 1,000 ML IV SCH (16:53)
[2017-05-09] MEDS: ACETAMINOPHEN 650MG/20.3ML UDC PO PRN (17:22)
[2017-05-09 17:45] LABS: CLARITY URINE CLEAR (CLEAR); COLOR URINE DARK YELLOW (YELLOW); KETONES URINE TRACE (NEGATIVE); LEUKOCYTE ESTERASE URINE TRACE (NEGATIVE); NITRITE URINE NEGATIVE (NEGATIVE); OCCULT BLOOD URINE NEGATIVE (NEGATIVE); PROTEIN URINE TRACE (NEGATIVE); SPECIFIC GRAVITY URINE 1.032 (1.005-1.030); UROBILINOGEN URINE 0.2 E.U./dL (0.2-1.0)
[2017-05-09 18:05] LABS: SODIUM URINE RANDOM < 5 mEq/L
[2017-05-10] VITALS (70 sets, daily range): BP systolic 85–146; BP diastolic 42–92
[2017-05-10] MEDS: INSULIN LISPRO 100 UNITS/ML SUBCUT SCH ×4 (00:22→18:46)
[2017-05-10] MEDS: BLOOD SUGAR DIAGNOSTIC STRIP TEST SCH ×4 (00:24→18:00)
[2017-05-10] MEDS: MEROPENEM 1,000 MG in SODIUM CHLORIDE 0.9% 100 ML IV SCH ×3 (01:35→20:03)
[2017-05-10] MEDS: SODIUM CHLORIDE 0.45% 1,000 ML IV SCH (01:37)
[2017-05-10] MEDS: VANCOMYCIN 1 G PREMIX 200 ML IV SCH ×2 (01:45→16:20)
[2017-05-10] MEDS: IPRATROPIUM/ALBUTEROL 0.5-3(2.5)MG/3ML NEB HHN SCH ×5 (03:52→20:13)
[2017-05-10] MEDS: METRONIDAZOLE 500MG TABLET PO SCH ×3 (05:26→21:55)
[2017-05-10] MEDS: LACTULOSE 20G/30ML UDC PO SCH ×3 (05:26→21:55)
[2017-05-10] MEDS: SODIUM CHLORIDE 0.9% INJ 3ML FLUSH IVF SCH ×3 (05:27→22:06)
[2017-05-10 06:04] LABS: AMMONIA 48 uMol/L (<32)
[2017-05-10 06:44] LABS: CARBON DIOXIDE 29 mEq/L (21-32); CHLORIDE 117 mEq/L (98-107); CREATINE KINASE 566 IU/L (39-308)
[2017-05-10 08:04] LABS: BG BASE EXCESS -1.6 mmol/L (-2.0-2.0); BG CARBOXYHEMOGLOBIN 0.3 % (0.5-1.5); BG DEOXYHEMOGLOBIN 4.1 % (0.0-5.0); BG FRACTION INSPIRED OXYGEN 60; BG HCO3 ACT 22.4 mmol/L (22.0-26.0); BG METHEMOGLOBIN 0.2 % (0.0-1.5); BG OXYGEN SATURATION 95.9 % (92.0-98.5); BG OXYHEMOGLOBIN 95.4 % (94.0-97.0); BG PCO2 36.2 mmHg (35.0-45.0); BG PO2 82.4 mmHg (75.0-100.0); BG PRESSURE SUPPORT 10; BG SAMPLE SITE RIGHT RADIAL; BG TIDAL VOLUME(mL) 550 mL; BG TOTAL HEMOGLOBIN 15.1 g/dL (12.0-18.0); BG VENT MODE VENT - SIMV; BG VENT RATE 6 set
[2017-05-10 08:06] LABS: BASOPHILS % 1.3 % (0.0-2.0); EOSINOPHILS % 1.7 % (0.0-5.0); HEMATOCRIT. 44.2 % (42.0-52.0); HEMOGLOBIN. 14.3 g/dL (14.0-18.0); LYMPHOCYTES % 13.5 % (20.0-50.0); MEAN CORPUSCULAR HEMOGLOBIN 31.1 pg (28.0-32.0); MEAN PLATELET VOLUME 9.9 fl (7.4-10.4); MONOCYTES % 6.2 % (2.0-8.0); NEUTROPHILS % 77.3 % (40.0-76.0); PLATELET 82 x1000/uL (130-400); RED CELL DISTRIBUTION WIDTH 15.7 % (11.6-14.6)
[2017-05-10] MEDS: DILTIAZEM HCL 125 MG in SODIUM CHLORIDE 0.9% 100 ML IV PRN (08:59)
[2017-05-10] MEDS: PANTOPRAZOLE SODIUM 40 MG/VIAL IV SCH ×2 (09:25→21:55)
[2017-05-10] MEDS: THIAMINE HCL 100MG TABLET PO SCH (09:25)
[2017-05-10] MEDS ORDERED: PROPOFOL 10MG/ML 100ML 100 ML IV PRN (14:25)
[2017-05-10] MEDS: LORAZEPAM 2MG/ML CPJ IV PRN (15:23)
[2017-05-10] MEDS: DEXTROSE 5% WATER 1,000 ML IV SCH (16:45)
[2017-05-11] VITALS (76 sets, daily range): BP systolic 95–156; BP diastolic 56–108
[2017-05-11] MEDS: IPRATROPIUM/ALBUTEROL 0.5-3(2.5)MG/3ML NEB HHN SCH ×7 (00:06→20:10)
[2017-05-11] MEDS: INSULIN LISPRO 100 UNITS/ML SUBCUT SCH ×2 (00:44→05:57)
[2017-05-11] MEDS: BLOOD SUGAR DIAGNOSTIC STRIP TEST SCH ×13 (00:56→23:00)
[2017-05-11] MEDS: ACETAMINOPHEN 650MG/20.3ML UDC PO PRN ×2 (01:21→16:11)
[2017-05-11] MEDS: DIPHENHYDRAMINE 50MG/ML VIAL IV PRN ×2 (01:32→09:41)
[2017-05-11] MEDS: LORAZEPAM 2MG/ML CPJ IV PRN ×2 (02:24→09:41)
[2017-05-11] MEDS: VANCOMYCIN 1 G PREMIX 200 ML IV SCH (02:34)
[2017-05-11] MEDS: MEROPENEM 1,000 MG in SODIUM CHLORIDE 0.9% 100 ML IV SCH ×3 (02:35→20:51)
[2017-05-11] MEDS: DILTIAZEM HCL 125 MG in SODIUM CHLORIDE 0.9% 100 ML IV PRN (05:20)
[2017-05-11] MEDS: METRONIDAZOLE 500MG TABLET PO SCH ×3 (05:20→21:06)
[2017-05-11] MEDS: SODIUM CHLORIDE 0.9% INJ 3ML FLUSH IVF SCH ×3 (05:20→22:42)
[2017-05-11] MEDS: LACTULOSE 20G/30ML UDC PO SCH ×2 (05:20→13:11)
[2017-05-11] MEDS: DEXTROSE 5% WATER 1,000 ML IV SCH ×3 (05:43→22:42)
[2017-05-11 06:01] LABS: EOSINOPHILS % 1.4 % (0.0-5.0); HEMATOCRIT. 43.5 % (42.0-52.0); HEMOGLOBIN. 14.2 g/dL (14.0-18.0); LYMPHOCYTES % 12.7 % (20.0-50.0); MEAN CORPUSCULAR VOLUME 94.7 fL (80.0-94.0); MEAN PLATELET VOLUME 9.5 fl (7.4-10.4); MONOCYTES % 8.2 % (2.0-8.0); NEUTROPHILS % 76.7 % (40.0-76.0); PLATELET 112 x1000/uL (130-400); RED BLOOD CELL COUNT 4.59 mill/uL (4.7-6.1); RED CELL DISTRIBUTION WIDTH 15.8 % (11.6-14.6)
[2017-05-11 06:09] LABS: INR 1.5; PARTIAL THROMBOPLASTIN TIME 28.5 sec (23.4-31.0); PROTHROMBIN TIME 16.1 sec (9.4-11.6)
[2017-05-11 06:37] LABS: PHOSPHORUS 1.8 mg/dL (2.5-4.9)
[2017-05-11 07:05] LABS: AMMONIA 68 uMol/L (<32)
[2017-05-11] MEDS ORDERED: DEXTROSE 50% WATER 50ML SYRINGE IV PRN ×2 (08:45)
[2017-05-11] MEDS: THIAMINE HCL 100MG TABLET PO SCH (09:00)
[2017-05-11] MEDS: PANTOPRAZOLE SODIUM 40 MG/VIAL IV SCH ×2 (09:00→21:06)
[2017-05-11] MEDS: INSULIN REGULAR (DRIP) 100 UNITS in SODIUM CHLORIDE 0.9% 100 ML IV PRN ×4 (09:57→21:01)
[2017-05-11] MEDS ORDERED: CEFAZOLIN 1000MG PREMIX 50 ML IV NR (11:00)
[2017-05-11] MEDS ORDERED: LORAZEPAM 2MG/ML CPJ IV PRN (11:15)
[2017-05-11 11:40] LABS: PREALBUMIN 8.3 mg/dL (20.0-40.0)
[2017-05-11 11:46] LABS: BG BASE EXCESS 2.9 mmol/L (-2.0-2.0); BG CARBOXYHEMOGLOBIN 0.3 % (0.5-1.5); BG DEOXYHEMOGLOBIN 4.3 % (0.0-5.0); BG FRACTION INSPIRED OXYGEN 60; BG HCO3 ACT 27.5 mmol/L (22.0-26.0); BG METHEMOGLOBIN 0.4 % (0.0-1.5); BG OXYGEN SATURATION 95.7 % (92.0-98.5); BG PCO2 42.2 mmHg (35.0-45.0); BG PH 7.432 (7.350-7.450); BG PO2 80.8 mmHg (75.0-100.0); BG PRESSURE SUPPORT 10; BG SAMPLE SITE RIGHT RADIAL; BG TIDAL VOLUME(mL) 550 mL; BG TOTAL HEMOGLOBIN 15.6 g/dL (12.0-18.0); BG VENT MODE VENT - SIMV; BG VENT RATE 6 set
[2017-05-11] MEDS ORDERED: POTASSIUM PHOS,M-BASIC-D-BASIC 15 MMOL in DEXT 5% WATER 245 ML IV SCH (12:00)
[2017-05-11] MEDS: MIDAZOLAM HCL 50 MG in DEXTROSE 5% WATER 40 ML IV PRN ×3 (12:23→20:58)
[2017-05-11 14:33] LABS: BG BASE EXCESS 3.2 mmol/L (-2.0-2.0); BG CARBOXYHEMOGLOBIN 0.9 % (0.5-1.5); BG DEOXYHEMOGLOBIN 3.5 % (0.0-5.0); BG FRACTION INSPIRED OXYGEN 60; BG HCO3 ACT 27.3 mmol/L (22.0-26.0); BG METHEMOGLOBIN 0.4 % (0.0-1.5); BG OXYGEN SATURATION 96.5 % (92.0-98.5); BG OXYHEMOGLOBIN 95.2 % (94.0-97.0); BG PCO2 40.1 mmHg (35.0-45.0); BG PH 7.451 (7.350-7.450); BG PO2 83.6 mmHg (75.0-100.0); BG SAMPLE SITE RIGHT RADIAL; BG TIDAL VOLUME(mL) 600 mL; BG TOTAL HEMOGLOBIN 15.8 g/dL (12.0-18.0); BG VENT MODE VENT - A/C; BG VENT RATE 12 set
[2017-05-11] MEDS ORDERED: POTASSIUM CHLORIDE 20MEQ/PACKET PO NR (15:30)
[2017-05-11] MEDS: RISPERIDONE 0.5MG TABLET PO SCH ×2 (16:30→21:06)
[2017-05-11] MEDS ORDERED: VANCOMYCIN 1,750 MG in DEXT 5% WATER 500 ML IV SCH (18:00)
[2017-05-11 20:27] LABS: CARBON DIOXIDE 25 mEq/L (21-32); CHLORIDE 119 mEq/L (98-107)
[2017-05-11] MEDS ORDERED: RISPERIDONE 0.5MG TABLET PO SCH (21:00)
[2017-05-12] VITALS (46 sets, daily range): BP systolic 95–140; BP diastolic 54–77
[2017-05-12] MEDS: MIDAZOLAM HCL 50 MG in DEXTROSE 5% WATER 40 ML IV PRN ×4 (00:08→23:38)
[2017-05-12] MEDS: IPRATROPIUM/ALBUTEROL 0.5-3(2.5)MG/3ML NEB HHN SCH ×6 (00:12→19:54)
[2017-05-12] MEDS: BLOOD SUGAR DIAGNOSTIC STRIP TEST SCH ×27 (00:12→23:36)
[2017-05-12] MEDS: MEROPENEM 1,000 MG in SODIUM CHLORIDE 0.9% 100 ML IV SCH ×3 (03:24→17:46)
[2017-05-12 05:34] LABS: BASOPHILS % 0.9 % (0.0-2.0); EOSINOPHILS % 3.5 % (0.0-5.0); HEMATOCRIT. 42.5 % (42.0-52.0); HEMOGLOBIN. 13.9 g/dL (14.0-18.0); MEAN CORPUSCULAR HEMOGLOBIN 31.2 pg (28.0-32.0); MEAN CORPUSCULAR VOLUME 95.5 fL (80.0-94.0); MEAN PLATELET VOLUME 9.6 fl (7.4-10.4); MONOCYTES % 7.4 % (2.0-8.0); NEUTROPHILS % 69.2 % (40.0-76.0); PLATELET 85 x1000/uL (130-400); RED BLOOD CELL COUNT 4.45 mill/uL (4.7-6.1); RED CELL DISTRIBUTION WIDTH 16.5 % (11.6-14.6)
[2017-05-12 05:38] LABS: INR 1.6; PARTIAL THROMBOPLASTIN TIME 28.6 sec (23.4-31.0); PROTHROMBIN TIME 16.2 sec (9.4-11.6)
[2017-05-12 06:00] LABS: AMMONIA 50 uMol/L (<32)
[2017-05-12] MEDS: SODIUM CHLORIDE 0.9% INJ 3ML FLUSH IVF SCH ×3 (06:14→21:42)
[2017-05-12] MEDS: METRONIDAZOLE 500MG TABLET PO SCH ×3 (06:14→21:46)
[2017-05-12 06:20] LABS: CARBON DIOXIDE 28 mEq/L (21-32); CHLORIDE 123 mEq/L (98-107); PHOSPHORUS 4.2 mg/dL (2.5-4.9)
[2017-05-12] MEDS: DEXTROSE 5% WATER 1,000 ML IV SCH ×2 (08:10→17:00)
[2017-05-12] MEDS: INSULIN REGULAR (DRIP) 100 UNITS in SODIUM CHLORIDE 0.9% 100 ML IV PRN ×2 (08:25→23:40)
[2017-05-12] MEDS: PANTOPRAZOLE SODIUM 40 MG/VIAL IV SCH ×2 (09:30→21:35)
[2017-05-12] MEDS: THIAMINE HCL 100MG TABLET PO SCH (09:30)
[2017-05-12] MEDS: RISPERIDONE 0.5MG TABLET PO SCH ×2 (09:30→21:36)
[2017-05-12] MEDS ORDERED: SODIUM CHLORIDE 0.9% 10ML VIAL ONE (09:36)
[2017-05-12] MEDS ORDERED: SIMETHICONE 40 MG/0.6 ML 30ML ONE ×2 (09:36→12:14)
[2017-05-12 09:52] LABS: BG BASE EXCESS 2.3 mmol/L (-2.0-2.0); BG CARBOXYHEMOGLOBIN 0.7 % (0.5-1.5); BG DEOXYHEMOGLOBIN 4.5 % (0.0-5.0); BG FRACTION INSPIRED OXYGEN 50; BG HCO3 ACT 27.3 mmol/L (22.0-26.0); BG METHEMOGLOBIN 0.4 % (0.0-1.5); BG OXYGEN SATURATION 95.4 % (92.0-98.5); BG OXYHEMOGLOBIN 94.4 % (94.0-97.0); BG PCO2 43.7 mmHg (35.0-45.0); BG PH 7.413 (7.350-7.450); BG PO2 80.1 mmHg (75.0-100.0); BG SAMPLE SITE RIGHT RADIAL; BG TIDAL VOLUME(mL) 600 mL; BG TOTAL HEMOGLOBIN 13.9 g/dL (12.0-18.0); BG VENT MODE VENT - A/C; BG VENT RATE 12 set
[2017-05-12] MEDS ORDERED: MIDAZOLAM HCL 5 MG/5 ML VIAL ONE (12:13)
[2017-05-12] MEDS ORDERED: FENTANYL CITRATE/PF 50MCG/ML 2ML VIAL ONE (12:13)
[2017-05-12 13:17] LABS: CARBON DIOXIDE 31 mEq/L (21-32); CHLORIDE 122 mEq/L (98-107)
[2017-05-12 13:47] LABS: HEPATITIS B SURFACE ANTIGEN NEGATIVE
[2017-05-12 14:16] LABS: HEPATITIS B CORE AB IGM NEGATIVE
[2017-05-12 14:17] LABS: HEPATITIS A AB IGM NEGATIVE (NEGATIVE)
[2017-05-12 14:53] LABS: BG BASE EXCESS 0.9 mmol/L (-2.0-2.0); BG CARBOXYHEMOGLOBIN 0.7 % (0.5-1.5); BG DEOXYHEMOGLOBIN 5.5 % (0.0-5.0); BG FRACTION INSPIRED OXYGEN 50; BG HCO3 ACT 24.3 mmol/L (22.0-26.0); BG METHEMOGLOBIN 0.2 % (0.0-1.5); BG OXYGEN SATURATION 94.5 % (92.0-98.5); BG OXYHEMOGLOBIN 93.6 % (94.0-97.0); BG PCO2 35.5 mmHg (35.0-45.0); BG PH 7.454 (7.350-7.450); BG PO2 71.2 mmHg (75.0-100.0); BG SAMPLE SITE RIGHT RADIAL; BG TIDAL VOLUME(mL) 600 mL; BG TOTAL HEMOGLOBIN 14.6 g/dL (12.0-18.0); BG VENT MODE VENT - A/C; BG VENT RATE 12 set
[2017-05-12 16:23] LABS: CARBON DIOXIDE 26 mEq/L (21-32); CHLORIDE 121 mEq/L (98-107)
[2017-05-13] VITALS (90 sets, daily range): BP systolic 86–119; BP diastolic 40–77
[2017-05-13] MEDS: DEXTROSE 5% WATER 1,000 ML IV SCH ×4 (00:02→21:03)
[2017-05-13] MEDS: BLOOD SUGAR DIAGNOSTIC STRIP TEST SCH ×24 (00:03→23:23)
[2017-05-13] MEDS: IPRATROPIUM/ALBUTEROL 0.5-3(2.5)MG/3ML NEB HHN SCH ×7 (00:25→23:40)
[2017-05-13] MEDS: DILTIAZEM HCL 125 MG in SODIUM CHLORIDE 0.9% 100 ML IV PRN ×2 (01:21→21:14)
[2017-05-13] MEDS: MEROPENEM 1,000 MG in SODIUM CHLORIDE 0.9% 100 ML IV SCH ×3 (02:07→19:19)
[2017-05-13 05:34] LABS: BASOPHILS % 0.6 % (0.0-2.0); EOSINOPHILS % 3.9 % (0.0-5.0); HEMATOCRIT. 42.6 % (42.0-52.0); HEMOGLOBIN. 14.1 g/dL (14.0-18.0); LYMPHOCYTES % 14.9 % (20.0-50.0); MEAN CORPUSCULAR HEMOGLOBIN 31.8 pg (28.0-32.0); MEAN PLATELET VOLUME 9.7 fl (7.4-10.4); MONOCYTES % 6.9 % (2.0-8.0); NEUTROPHILS % 73.7 % (40.0-76.0); PLATELET 76 x1000/uL (130-400); RED BLOOD CELL COUNT 4.44 mill/uL (4.7-6.1); RED CELL DISTRIBUTION WIDTH 16.8 % (11.6-14.6)
[2017-05-13 05:44] LABS: CARBON DIOXIDE 26 mEq/L (21-32); CHLORIDE 117 mEq/L (98-107); PHOSPHORUS 3.2 mg/dL (2.5-4.9)
[2017-05-13 06:18] LABS: AMMONIA 64 uMol/L (<32)
[2017-05-13] MEDS: SODIUM CHLORIDE 0.9% INJ 3ML FLUSH IVF SCH ×3 (06:44→22:25)
[2017-05-13] MEDS: METRONIDAZOLE 500MG TABLET PO SCH ×3 (06:44→22:24)
[2017-05-13] MEDS: RISPERIDONE 0.5MG TABLET PO SCH ×2 (08:28→21:03)
[2017-05-13] MEDS: PANTOPRAZOLE SODIUM 40 MG/VIAL IV SCH ×2 (08:28→21:04)
[2017-05-13] MEDS: THIAMINE HCL 100MG TABLET PO SCH (08:28)
[2017-05-13] MEDS: INSULIN REGULAR (DRIP) 100 UNITS in SODIUM CHLORIDE 0.9% 100 ML IV PRN ×2 (10:36→21:20)
[2017-05-13] MEDS: MIDAZOLAM HCL 50 MG in DEXTROSE 5% WATER 40 ML IV PRN (10:37)
[2017-05-13] MEDS: ACETAMINOPHEN 650MG/20.3ML UDC PO PRN (12:27)
[2017-05-14] VITALS (81 sets, daily range): BP systolic 93–140; BP diastolic 50–82
[2017-05-14] MEDS: BLOOD SUGAR DIAGNOSTIC STRIP TEST SCH ×24 (00:21→23:47)
[2017-05-14] MEDS: DEXTROSE 5% WATER 1,000 ML IV SCH ×3 (04:04→18:39)
[2017-05-14] MEDS: IPRATROPIUM/ALBUTEROL 0.5-3(2.5)MG/3ML NEB HHN SCH ×5 (04:04→20:52)
[2017-05-14 05:33] LABS: BASOPHILS % 1.1 % (0.0-2.0); EOSINOPHILS % 4.5 % (0.0-5.0); HEMATOCRIT. 41.2 % (42.0-52.0); HEMOGLOBIN. 13.7 g/dL (14.0-18.0); MEAN CORPUSCULAR HEMOGLOBIN 31.8 pg (28.0-32.0); MEAN CORPUSCULAR VOLUME 95.7 fL (80.0-94.0); NEUTROPHILS % 63.4 % (40.0-76.0); PLATELET 82 x1000/uL (130-400); RED CELL DISTRIBUTION WIDTH 16.2 % (11.6-14.6)
[2017-05-14 05:35] LABS: INR 1.6; PARTIAL THROMBOPLASTIN TIME 31.3 sec (23.4-31.0); PROTHROMBIN TIME 16.2 sec (9.4-11.6)
[2017-05-14] MEDS: METRONIDAZOLE 500MG TABLET PO SCH ×2 (06:00→14:00)
[2017-05-14] MEDS: SODIUM CHLORIDE 0.9% INJ 3ML FLUSH IVF SCH ×3 (06:00→22:38)
[2017-05-14 06:24] LABS: CARBON DIOXIDE 23 mEq/L (21-32); CHLORIDE 113 mEq/L (98-107)
[2017-05-14] MEDS: PANTOPRAZOLE SODIUM 40 MG/VIAL IV SCH ×2 (07:57→22:34)
[2017-05-14] MEDS: DIPHENHYDRAMINE 50MG/ML VIAL IV PRN (07:57)
[2017-05-14 08:10] LABS: BG BASE EXCESS 0.5 mmol/L (-2.0-2.0); BG CARBOXYHEMOGLOBIN 0.6 % (0.5-1.5); BG DEOXYHEMOGLOBIN 3.4 % (0.0-5.0); BG FRACTION INSPIRED OXYGEN 50; BG METHEMOGLOBIN 0.3 % (0.0-1.5); BG OXYGEN SATURATION 96.6 % (92.0-98.5); BG OXYHEMOGLOBIN 95.7 % (94.0-97.0); BG PCO2 35.4 mmHg (35.0-45.0); BG PH 7.449 (7.350-7.450); BG PO2 88.7 mmHg (75.0-100.0); BG SAMPLE SITE RIGHT RADIAL; BG TIDAL VOLUME(mL) 600 mL; BG TOTAL HEMOGLOBIN 14.6 g/dL (12.0-18.0); BG VENT MODE VENT - A/C; BG VENT RATE 12 set
[2017-05-14] MEDS: RISPERIDONE 0.5MG TABLET PO SCH ×2 (08:13→21:00)
[2017-05-14] MEDS: THIAMINE HCL 100MG TABLET PO SCH (08:13)
[2017-05-14] MEDS: ACETAMINOPHEN 650MG/20.3ML UDC PO PRN (08:13)
[2017-05-14] MEDS: INSULIN REGULAR (DRIP) 100 UNITS in SODIUM CHLORIDE 0.9% 100 ML IV PRN (09:13)
[2017-05-14 09:49] LABS: AMMONIA 146 uMol/L (<32)
[2017-05-14] MEDS ORDERED: FENTANYL CITRATE/PF 50MCG/ML 2ML VIAL ONE (15:16)
[2017-05-14] MEDS ORDERED: MIDAZOLAM HCL 2 MG/2 ML VIAL ONE (15:16)
[2017-05-14] MEDS ORDERED: DEXTROSE 50% WATER 50ML SYRINGE IV PRN (20:45)
[2017-05-14] MEDS ORDERED: BLOOD SUGAR DIAGNOSTIC STRIP TEST SCH (21:00)
[2017-05-14] MEDS ORDERED: INSULIN LISPRO 100 UNITS/ML SUBCUT SCH (21:00)
[2017-05-14] MEDS: LACTULOSE 20G/30ML UDC PO SCH (22:37)
[2017-05-15] VITALS (60 sets, daily range): BP systolic 92–149; BP diastolic 49–81
[2017-05-15] MEDS: IPRATROPIUM/ALBUTEROL 0.5-3(2.5)MG/3ML NEB HHN SCH ×6 (00:41→20:13)
[2017-05-15 05:23] LABS: AMMONIA 45 uMol/L (<32)
[2017-05-15] MEDS: BLOOD SUGAR DIAGNOSTIC STRIP TEST SCH ×3 (06:43→17:26)
[2017-05-15] MEDS: INSULIN LISPRO 100 UNITS/ML SUBCUT SCH ×3 (06:45→17:30)
[2017-05-15] MEDS: LACTULOSE 20G/30ML UDC PO SCH ×3 (06:46→21:03)
[2017-05-15] MEDS: ACETAMINOPHEN 650MG/20.3ML UDC PO PRN (06:46)
[2017-05-15] MEDS: SODIUM CHLORIDE 0.9% INJ 3ML FLUSH IVF SCH ×3 (06:47→21:03)
[2017-05-15] MEDS: THIAMINE HCL 100MG TABLET PO SCH (08:01)
[2017-05-15] MEDS: PANTOPRAZOLE SODIUM 40 MG/VIAL IV SCH ×2 (08:01→20:55)
[2017-05-15] MEDS: RISPERIDONE 0.5MG TABLET PO SCH ×2 (08:01→20:56)
[2017-05-15 08:13] LABS: BASOPHILS % 0.6 % (0.0-2.0); EOSINOPHILS % 0.1 % (0.0-5.0); HEMATOCRIT. 40.6 % (42.0-52.0); HEMOGLOBIN. 13.4 g/dL (14.0-18.0); LYMPHOCYTES % 7.9 % (20.0-50.0); MEAN CORPUSCULAR HEMOGLOBIN 31.7 pg (28.0-32.0); MEAN PLATELET VOLUME 10.6 fl (7.4-10.4); MONOCYTES % 3.5 % (2.0-8.0); NEUTROPHILS % 87.9 % (40.0-76.0); PLATELET 98 x1000/uL (130-400); RED BLOOD CELL COUNT 4.23 mill/uL (4.7-6.1); RED CELL DISTRIBUTION WIDTH 16.5 % (11.6-14.6)
[2017-05-15 08:28] LABS: BG BASE EXCESS -0.5 mmol/L (-2.0-2.0); BG CARBOXYHEMOGLOBIN 0.8 % (0.5-1.5); BG DEOXYHEMOGLOBIN 2.7 % (0.0-5.0); BG FRACTION INSPIRED OXYGEN 50; BG HCO3 ACT 22.3 mmol/L (22.0-26.0); BG METHEMOGLOBIN 0.3 % (0.0-1.5); BG OXYGEN SATURATION 97.3 % (92.0-98.5); BG OXYHEMOGLOBIN 96.2 % (94.0-97.0); BG PCO2 31.3 mmHg (35.0-45.0); BG PO2 94.5 mmHg (75.0-100.0); BG SAMPLE SITE RIGHT RADIAL; BG TIDAL VOLUME(mL) 600 mL; BG TOTAL HEMOGLOBIN 13.8 g/dL (12.0-18.0); BG VENT MODE VENT - A/C; BG VENT RATE 12 set
[2017-05-15 08:53] LABS: CARBON DIOXIDE 21 mEq/L (21-32); CHLORIDE 106 mEq/L (98-107)
[2017-05-15] MEDS: MORPHINE SULFATE 4 MG/ML CPJ (NOT FOR IM USE) IV PRN (12:59)
[2017-05-15] MEDS: HYDROCODONE/ACETAMINOPHEN 5/325MG TABLET PO PRN (17:33)
[2017-05-16] VITALS (20 sets, daily range): BP systolic 116–146; BP diastolic 60–79
[2017-05-16] MEDS: IPRATROPIUM/ALBUTEROL 0.5-3(2.5)MG/3ML NEB HHN SCH ×7 (00:09→23:40)
[2017-05-16] MEDS: INSULIN LISPRO 100 UNITS/ML SUBCUT SCH ×5 (01:01→22:27)
[2017-05-16] MEDS: DIPHENHYDRAMINE 50MG/ML VIAL IV PRN (01:07)
[2017-05-16 04:46] LABS: BASOPHILS % 0.3 % (0.0-2.0); EOSINOPHILS % 0.4 % (0.0-5.0); HEMATOCRIT. 39.3 % (42.0-52.0); HEMOGLOBIN. 12.9 g/dL (14.0-18.0); LYMPHOCYTES % 9.8 % (20.0-50.0); MEAN CORPUSCULAR HEMOGLOBIN 31.6 pg (28.0-32.0); MEAN CORPUSCULAR VOLUME 96.1 fL (80.0-94.0); MEAN PLATELET VOLUME 9.8 fl (7.4-10.4); MONOCYTES % 8.6 % (2.0-8.0); NEUTROPHILS % 80.9 % (40.0-76.0); PLATELET 98 x1000/uL (130-400); RED BLOOD CELL COUNT 4.09 mill/uL (4.7-6.1); RED CELL DISTRIBUTION WIDTH 16.5 % (11.6-14.6)
[2017-05-16] MEDS: LACTULOSE 20G/30ML UDC PO SCH ×2 (05:42→22:18)
[2017-05-16] MEDS: SODIUM CHLORIDE 0.9% INJ 3ML FLUSH IVF SCH ×3 (05:42→22:24)
[2017-05-16] MEDS: BLOOD SUGAR DIAGNOSTIC STRIP TEST SCH ×5 (05:44→22:31)
[2017-05-16 06:21] LABS: AMMONIA 75 uMol/L (<32)
[2017-05-16 06:24] LABS: PHOSPHORUS 3.3 mg/dL (2.5-4.9)
[2017-05-16] MEDS ORDERED: SODIUM CHLORIDE 0.9% 500 ML IV NR (09:15)
[2017-05-16] MEDS: THIAMINE HCL 100MG TABLET PO SCH (09:52)
[2017-05-16] MEDS: RISPERIDONE 0.5MG TABLET PO SCH ×2 (09:52→22:18)
[2017-05-16] MEDS: METOPROLOL TARTRATE 25MG TABLET PEG SCH ×2 (09:52→22:22)
[2017-05-16] MEDS: PANTOPRAZOLE SODIUM 40 MG/VIAL IV SCH ×2 (09:52→22:18)
[2017-05-16] MEDS: INSULIN GLARGINE UD 100 UNITS/ML SYR SUBCUT SCH ×2 (09:53→22:23)
[2017-05-16] MEDS: ACETAMINOPHEN 650MG/20.3ML UDC PO PRN (09:59)
[2017-05-16] MEDS: MORPHINE SULFATE 4 MG/ML CPJ (NOT FOR IM USE) IV PRN (14:50)
[2017-05-16] MEDS: SODIUM CHLORIDE 0.45% 1,000 ML IV SCH (18:48)
[2017-05-17] VITALS (12 sets, daily range): BP systolic 103–140; BP diastolic 60–77
[2017-05-17] MEDS: IPRATROPIUM/ALBUTEROL 0.5-3(2.5)MG/3ML NEB HHN SCH ×5 (03:32→20:08)
[2017-05-17] MEDS: BLOOD SUGAR DIAGNOSTIC STRIP TEST SCH ×3 (05:23→18:37)
[2017-05-17] MEDS: INSULIN LISPRO 100 UNITS/ML SUBCUT SCH ×3 (05:23→18:36)
[2017-05-17] MEDS: SODIUM CHLORIDE 0.45% 1,000 ML IV SCH ×2 (06:50→22:01)
[2017-05-17 08:35] LABS: BASOPHILS % 0.4 % (0.0-2.0); EOSINOPHILS % 2.6 % (0.0-5.0); HEMOGLOBIN. 12.7 g/dL (14.0-18.0); LYMPHOCYTES % 13.6 % (20.0-50.0); MEAN CORPUSCULAR HEMOGLOBIN 31.8 pg (28.0-32.0); MEAN CORPUSCULAR VOLUME 95.6 fL (80.0-94.0); MEAN PLATELET VOLUME 9.6 fl (7.4-10.4); MONOCYTES % 11.9 % (2.0-8.0); NEUTROPHILS % 71.5 % (40.0-76.0); PLATELET 75 x1000/uL (130-400); RED BLOOD CELL COUNT 3.98 mill/uL (4.7-6.1); RED CELL DISTRIBUTION WIDTH 17.5 % (11.6-14.6)
[2017-05-17 08:58] LABS: AMMONIA 50 uMol/L (<32)
[2017-05-17 09:09] LABS: CARBON DIOXIDE 26 mEq/L (21-32); PHOSPHORUS 3.3 mg/dL (2.5-4.9)
[2017-05-17 09:15] LABS: CHLORIDE 113 mEq/L (98-107)
[2017-05-17] MEDS: LACTULOSE 20G/30ML UDC PO SCH ×2 (10:04→22:00)
[2017-05-17] MEDS: RISPERIDONE 0.5MG TABLET PO SCH ×2 (10:05→22:00)
[2017-05-17] MEDS: ACETAMINOPHEN 650MG/20.3ML UDC PO PRN (10:05)
[2017-05-17] MEDS: THIAMINE HCL 100MG TABLET PO SCH (10:05)
[2017-05-17] MEDS: METOPROLOL TARTRATE 25MG TABLET PEG SCH ×2 (10:05→22:01)
[2017-05-17] MEDS: PANTOPRAZOLE SODIUM 40 MG/VIAL IV SCH ×2 (10:06→22:02)
[2017-05-17] MEDS: INSULIN GLARGINE UD 100 UNITS/ML SYR SUBCUT SCH ×2 (11:30→22:08)
[2017-05-17] MEDS: SODIUM CHLORIDE 0.9% INJ 3ML FLUSH IVF SCH ×2 (14:00→22:00)
[2017-05-17] MEDS: HYDROCODONE/ACETAMINOPHEN 5/325MG TABLET PO PRN (14:01)
[2017-05-18] VITALS (21 sets, daily range): BP systolic 104–132; BP diastolic 52–90
[2017-05-18] MEDS: IPRATROPIUM/ALBUTEROL 0.5-3(2.5)MG/3ML NEB HHN SCH ×6 (00:12→19:52)
[2017-05-18] MEDS: BLOOD SUGAR DIAGNOSTIC STRIP TEST SCH ×4 (00:13→17:32)
[2017-05-18] MEDS: INSULIN LISPRO 100 UNITS/ML SUBCUT SCH ×5 (00:26→22:29)
[2017-05-18] MEDS: ACETAMINOPHEN 650MG/20.3ML UDC PO PRN (00:28)
[2017-05-18] MEDS: SODIUM CHLORIDE 0.9% INJ 3ML FLUSH IVF SCH ×3 (06:00→22:46)
[2017-05-18 06:30] LABS: EOSINOPHILS % 2.1 % (0.0-5.0); HEMATOCRIT. 39.1 % (42.0-52.0); HEMOGLOBIN. 12.7 g/dL (14.0-18.0); MEAN CORPUSCULAR HEMOGLOBIN 31.5 pg (28.0-32.0); MEAN CORPUSCULAR VOLUME 97.1 fL (80.0-94.0); MEAN PLATELET VOLUME 9.7 fl (7.4-10.4); MONOCYTES % 9.9 % (2.0-8.0); PLATELET 61 x1000/uL (130-400); RED BLOOD CELL COUNT 4.03 mill/uL (4.7-6.1); RED CELL DISTRIBUTION WIDTH 17.7 % (11.6-14.6)
[2017-05-18] MEDS: MORPHINE SULFATE 4 MG/ML CPJ (NOT FOR IM USE) IV PRN ×4 (08:15→21:56)
[2017-05-18] MEDS: LACTULOSE 20G/30ML UDC PO SCH (08:15)
[2017-05-18] MEDS: RISPERIDONE 0.5MG TABLET PO SCH ×2 (08:16→21:54)
[2017-05-18] MEDS: PANTOPRAZOLE SODIUM 40 MG/VIAL IV SCH ×2 (08:16→21:54)
[2017-05-18] MEDS: THIAMINE HCL 100MG TABLET PO SCH (08:16)
[2017-05-18] MEDS: METOPROLOL TARTRATE 25MG TABLET PEG SCH ×2 (08:16→21:55)
[2017-05-18 09:24] LABS: CARBON DIOXIDE 24 mEq/L (21-32); CHLORIDE 115 mEq/L (98-107); PHOSPHORUS 3.6 mg/dL (2.5-4.9)
[2017-05-18 10:07] LABS: BG BASE EXCESS 0.4 mmol/L (-2.0-2.0); BG CARBOXYHEMOGLOBIN 0.4 % (0.5-1.5); BG DEOXYHEMOGLOBIN 2.4 % (0.0-5.0); BG FRACTION INSPIRED OXYGEN 50; BG HCO3 ACT 24.2 mmol/L (22.0-26.0); BG METHEMOGLOBIN 0.3 % (0.0-1.5); BG OXYGEN SATURATION 97.6 % (92.0-98.5); BG OXYHEMOGLOBIN 96.9 % (94.0-97.0); BG PCO2 36.3 mmHg (35.0-45.0); BG PH 7.441 (7.350-7.450); BG PO2 102.7 mmHg (75.0-100.0); BG PRESSURE SUPPORT 8; BG SAMPLE SITE RIGHT BRACHIAL; BG TIDAL VOLUME(mL) 600 mL; BG TOTAL HEMOGLOBIN 13.6 g/dL (12.0-18.0); BG VENT MODE VENT - SIMV; BG VENT RATE 6 set
[2017-05-18] MEDS: SODIUM CHLORIDE 0.45% 1,000 ML IV SCH (11:49)
[2017-05-18] MEDS: INSULIN GLARGINE UD 100 UNITS/ML SYR SUBCUT SCH ×2 (11:56→22:25)
[2017-05-18] MEDS: DEXTROSE 5% WATER 1,000 ML IV SCH (13:46)
[2017-05-18] MEDS: NICOTINE 14MG PATCH TD SCH (13:46)
[2017-05-18 15:00] LABS: KETONES URINE TRACE (NEGATIVE); LEUKOCYTE ESTERASE URINE 1+ (NEGATIVE); NITRITE URINE NEGATIVE (NEGATIVE); OCCULT BLOOD URINE 3+ (NEGATIVE); PH URINE 5.5 (4.5-8.0); PROTEIN URINE 1+ (NEGATIVE); SPECIFIC GRAVITY URINE 1.023 (1.005-1.030); UROBILINOGEN URINE 0.2 E.U./dL (0.2-1.0)
[2017-05-18 15:12] LABS: CLARITY URINE CLOUDY (CLEAR); COLOR URINE BLOODY (YELLOW)
[2017-05-19] VITALS (12 sets, daily range): BP systolic 113–129; BP diastolic 50–78
[2017-05-19] MEDS: IPRATROPIUM/ALBUTEROL 0.5-3(2.5)MG/3ML NEB HHN SCH ×6 (00:22→20:30)
[2017-05-19] MEDS: INSULIN LISPRO 100 UNITS/ML SUBCUT SCH ×4 (00:58→17:53)
[2017-05-19] MEDS: BLOOD SUGAR DIAGNOSTIC STRIP TEST SCH ×4 (00:59→17:52)
[2017-05-19] MEDS: SODIUM CHLORIDE 0.9% INJ 3ML FLUSH IVF SCH ×3 (06:00→21:42)
[2017-05-19 06:02] LABS: AMMONIA 76 uMol/L (<32)
[2017-05-19 06:23] LABS: BASOPHILS % 0.6 % (0.0-2.0); EOSINOPHILS % 2.8 % (0.0-5.0); HEMATOCRIT. 38.7 % (42.0-52.0); HEMOGLOBIN. 12.7 g/dL (14.0-18.0); LYMPHOCYTES % 12.8 % (20.0-50.0); MEAN CORPUSCULAR HEMOGLOBIN 31.9 pg (28.0-32.0); MEAN CORPUSCULAR VOLUME 96.9 fL (80.0-94.0); MONOCYTES % 7.7 % (2.0-8.0); NEUTROPHILS % 76.1 % (40.0-76.0); PLATELET 59 x1000/uL (130-400); RED BLOOD CELL COUNT 3.99 mill/uL (4.7-6.1); RED CELL DISTRIBUTION WIDTH 17.3 % (11.6-14.6)
[2017-05-19] MEDS: DEXTROSE 5% WATER 1,000 ML IV SCH (07:02)
[2017-05-19 08:10] LABS: CHLORIDE 116 mEq/L (98-107)
[2017-05-19] MEDS: LACTULOSE 20G/30ML UDC PO SCH (08:30)
[2017-05-19] MEDS: PANTOPRAZOLE SODIUM 40 MG/VIAL IV SCH ×2 (08:30→21:05)
[2017-05-19] MEDS: METOPROLOL TARTRATE 25MG TABLET PEG SCH ×2 (08:31→22:03)
[2017-05-19] MEDS: RISPERIDONE 0.5MG TABLET PO SCH ×2 (08:31→21:42)
[2017-05-19] MEDS: THIAMINE HCL 100MG TABLET PO SCH (08:31)
[2017-05-19] MEDS: NICOTINE 14MG PATCH TD SCH (08:32)
[2017-05-19 09:15] LABS: BG BASE EXCESS 2.5 mmol/L (-2.0-2.0); BG CARBOXYHEMOGLOBIN 0.8 % (0.5-1.5); BG DEOXYHEMOGLOBIN 1.8 % (0.0-5.0); BG FRACTION INSPIRED OXYGEN 50; BG HCO3 ACT 26.7 mmol/L (22.0-26.0); BG METHEMOGLOBIN 0.4 % (0.0-1.5); BG OXYGEN SATURATION 98.2 % (92.0-98.5); BG PCO2 39.5 mmHg (35.0-45.0); BG PH 7.447 (7.350-7.450); BG PO2 108.8 mmHg (75.0-100.0); BG PRESSURE SUPPORT 8; BG SAMPLE SITE RIGHT RADIAL; BG TIDAL VOLUME(mL) 600 mL; BG TOTAL HEMOGLOBIN 12.9 g/dL (12.0-18.0); BG VENT MODE VENT - SIMV; BG VENT RATE 6 set
[2017-05-19 09:30] LABS: CARBON DIOXIDE 22 mEq/L (21-32)
[2017-05-19] MEDS: INSULIN GLARGINE UD 100 UNITS/ML SYR SUBCUT SCH ×2 (09:59→22:07)
[2017-05-19] MEDS: LORAZEPAM 2MG/ML CPJ IV PRN ×2 (10:37→17:59)
[2017-05-19 12:12] LABS: PREALBUMIN 8.4 mg/dL (20.0-40.0)
[2017-05-19] MEDS: MORPHINE SULFATE 4 MG/ML CPJ (NOT FOR IM USE) IV PRN (12:36)
[2017-05-20] VITALS (12 sets, daily range): BP systolic 101–128; BP diastolic 56–76
[2017-05-20] MEDS: IPRATROPIUM/ALBUTEROL 0.5-3(2.5)MG/3ML NEB HHN SCH ×6 (00:32→20:12)
[2017-05-20] MEDS: LORAZEPAM 2MG/ML CPJ IV PRN ×2 (00:35→22:15)
[2017-05-20] MEDS: INSULIN LISPRO 100 UNITS/ML SUBCUT SCH ×4 (00:49→18:39)
[2017-05-20] MEDS: DEXTROSE 5% WATER 1,000 ML IV SCH ×2 (03:28→14:49)
[2017-05-20] MEDS: BLOOD SUGAR DIAGNOSTIC STRIP TEST SCH ×5 (05:25→23:55)
[2017-05-20] MEDS: SODIUM CHLORIDE 0.9% INJ 3ML FLUSH IVF SCH ×3 (05:30→21:15)
[2017-05-20 06:22] LABS: BASOPHILS % 0.6 % (0.0-2.0); EOSINOPHILS % 3.4 % (0.0-5.0); HEMATOCRIT. 36.7 % (42.0-52.0); HEMOGLOBIN. 12.2 g/dL (14.0-18.0); LYMPHOCYTES % 18.4 % (20.0-50.0); MEAN CORPUSCULAR HEMOGLOBIN 32.8 pg (28.0-32.0); MEAN CORPUSCULAR VOLUME 98.8 fL (80.0-94.0); MEAN PLATELET VOLUME 10.5 fl (7.4-10.4); MONOCYTES % 8.3 % (2.0-8.0); NEUTROPHILS % 69.3 % (40.0-76.0); RED BLOOD CELL COUNT 3.72 mill/uL (4.7-6.1); RED CELL DISTRIBUTION WIDTH 18.7 % (11.6-14.6)
[2017-05-20 07:35] LABS: PLATELET 47 x1000/uL (130-400)
[2017-05-20] MEDS: METOPROLOL TARTRATE 25MG TABLET PEG SCH ×2 (09:02→21:10)
[2017-05-20] MEDS: PANTOPRAZOLE SODIUM 40 MG/VIAL IV SCH ×2 (09:03→21:09)
[2017-05-20] MEDS: LACTULOSE 20G/30ML UDC PO SCH ×3 (09:03→21:15)
[2017-05-20] MEDS: NICOTINE 14MG PATCH TD SCH (09:03)
[2017-05-20] MEDS: THIAMINE HCL 100MG TABLET PO SCH (09:03)
[2017-05-20] MEDS: RISPERIDONE 0.5MG TABLET PO SCH ×2 (09:03→21:10)
[2017-05-20] MEDS: INSULIN GLARGINE UD 100 UNITS/ML SYR SUBCUT SCH ×2 (09:04→21:11)
[2017-05-20 09:20] LABS: AMMONIA 91 uMol/L (<32)
[2017-05-20 09:42] LABS: CHLORIDE 116 mEq/L (98-107)
[2017-05-20 09:57] LABS: PLATELET ESTIMATE MARKEDLY DECREASED
[2017-05-20 10:07] LABS: CARBON DIOXIDE 23 mEq/L (21-32)
[2017-05-20 12:30] LABS: BG BASE EXCESS 1.3 mmol/L (-2.0-2.0); BG CARBOXYHEMOGLOBIN 0.2 % (0.5-1.5); BG DEOXYHEMOGLOBIN 4.4 % (0.0-5.0); BG FRACTION INSPIRED OXYGEN 40; BG METHEMOGLOBIN 0.4 % (0.0-1.5); BG OXYGEN SATURATION 95.6 % (92.0-98.5); BG PCO2 36.5 mmHg (35.0-45.0); BG PH 7.453 (7.350-7.450); BG PO2 79.5 mmHg (75.0-100.0); BG PRESSURE SUPPORT 8; BG SAMPLE SITE RIGHT RADIAL; BG TOTAL HEMOGLOBIN 12.5 g/dL (12.0-18.0); BG VENT MODE VENT - CPAP
[2017-05-20] MEDS: HYDROCODONE/ACETAMINOPHEN 5/325MG TABLET PO PRN (14:49)
[2017-05-21] VITALS (11 sets, daily range): BP systolic 91–136; BP diastolic 53–78
[2017-05-21] MEDS: ACETAMINOPHEN 650MG/20.3ML UDC PO PRN ×2 (00:01→19:17)
[2017-05-21] MEDS: DIPHENHYDRAMINE 50MG/ML VIAL IV PRN ×2 (00:01→22:19)
[2017-05-21] MEDS: INSULIN LISPRO 100 UNITS/ML SUBCUT SCH ×4 (00:02→17:40)
[2017-05-21] MEDS: IPRATROPIUM/ALBUTEROL 0.5-3(2.5)MG/3ML NEB HHN SCH ×7 (00:16→23:20)
[2017-05-21] MEDS: LACTULOSE 20G/30ML UDC PO SCH (04:20)
[2017-05-21] MEDS: BLOOD SUGAR DIAGNOSTIC STRIP TEST SCH ×3 (06:00→17:17)
[2017-05-21] MEDS: SODIUM CHLORIDE 0.9% INJ 3ML FLUSH IVF SCH ×3 (06:43→21:14)
[2017-05-21 07:26] LABS: BASOPHILS % 0.7 % (0.0-2.0); EOSINOPHILS % 5.3 % (0.0-5.0); HEMATOCRIT. 35.5 % (42.0-52.0); LYMPHOCYTES % 22.9 % (20.0-50.0); MEAN CORPUSCULAR HEMOGLOBIN 33.3 pg (28.0-32.0); MEAN CORPUSCULAR VOLUME 98.5 fL (80.0-94.0); MEAN PLATELET VOLUME 9.8 fl (7.4-10.4); MONOCYTES % 7.9 % (2.0-8.0); NEUTROPHILS % 63.2 % (40.0-76.0); RED CELL DISTRIBUTION WIDTH 17.6 % (11.6-14.6)
[2017-05-21 07:45] LABS: PLATELET 42 x1000/uL (130-400)
[2017-05-21 07:50] LABS: AMMONIA 77 uMol/L (<32)
[2017-05-21] MEDS: DEXTROSE 5% WATER 1,000 ML IV SCH (08:10)
[2017-05-21 08:14] LABS: CHLORIDE 115 mEq/L (98-107)
[2017-05-21 08:39] LABS: CARBON DIOXIDE 23 mEq/L (21-32); PHOSPHORUS 3.3 mg/dL (2.5-4.9)
[2017-05-21] MEDS: PANTOPRAZOLE SODIUM 40 MG/VIAL IV SCH ×2 (09:18→21:14)
[2017-05-21] MEDS: INSULIN GLARGINE UD 100 UNITS/ML SYR SUBCUT SCH ×2 (09:18→21:18)
[2017-05-21] MEDS: METOPROLOL TARTRATE 25MG TABLET PEG SCH ×3 (09:18→22:42)
[2017-05-21] MEDS: THIAMINE HCL 100MG TABLET PO SCH (09:19)
[2017-05-21] MEDS: NICOTINE 14MG PATCH TD SCH (09:19)
[2017-05-21] MEDS: RISPERIDONE 0.5MG TABLET PO SCH ×2 (09:19→21:14)
[2017-05-21] MEDS ORDERED: HYDROCODONE/ACETAMINOPHEN 5/325MG TABLET PO PRN (14:00)
[2017-05-21] MEDS ORDERED: LACTULOSE 20G/30ML UDC PO SCH (21:00)
[2017-05-21] MEDS: LORAZEPAM 2MG/ML CPJ IV PRN (22:19)
[2017-05-22] VITALS (12 sets, daily range): BP systolic 109–149; BP diastolic 65–95
[2017-05-22] MEDS: INSULIN LISPRO 100 UNITS/ML SUBCUT SCH ×4 (00:16→18:08)
[2017-05-22] MEDS: BLOOD SUGAR DIAGNOSTIC STRIP TEST SCH ×4 (00:18→17:58)
[2017-05-22] MEDS: IPRATROPIUM/ALBUTEROL 0.5-3(2.5)MG/3ML NEB HHN SCH ×5 (04:06→20:01)
[2017-05-22] MEDS: SODIUM CHLORIDE 0.9% INJ 3ML FLUSH IVF SCH ×2 (05:54→13:21)
[2017-05-22 08:20] LABS: CARBON DIOXIDE 23 mEq/L (21-32); CHLORIDE 116 mEq/L (98-107); PHOSPHORUS 3.4 mg/dL (2.5-4.9)
[2017-05-22] MEDS ORDERED: LACTULOSE 20G/30ML UDC PO SCH (09:00)
[2017-05-22] MEDS: NICOTINE 14MG PATCH TD SCH (09:28)
[2017-05-22] MEDS: METOPROLOL TARTRATE 25MG TABLET PEG SCH (09:29)
[2017-05-22] MEDS: INSULIN GLARGINE UD 100 UNITS/ML SYR SUBCUT SCH (09:29)
[2017-05-22] MEDS: PANTOPRAZOLE SODIUM 40 MG/VIAL IV SCH (09:29)
[2017-05-22] MEDS: RISPERIDONE 0.5MG TABLET PO SCH (09:29)
[2017-05-22] MEDS: THIAMINE HCL 100MG TABLET PO SCH (09:29)
[2017-05-22 09:50] LABS: BASOPHILS % 0.3 % (0.0-2.0); EOSINOPHILS % 5.5 % (0.0-5.0); HEMATOCRIT. 36.4 % (42.0-52.0); LYMPHOCYTES % 14.1 % (20.0-50.0); MEAN CORPUSCULAR HEMOGLOBIN 31.8 pg (28.0-32.0); MEAN CORPUSCULAR VOLUME 96.6 fL (80.0-94.0); MEAN PLATELET VOLUME 10.2 fl (7.4-10.4); MONOCYTES % 6.4 % (2.0-8.0); NEUTROPHILS % 73.7 % (40.0-76.0); PLATELET 55 x1000/uL (130-400); RED BLOOD CELL COUNT 3.76 mill/uL (4.7-6.1); RED CELL DISTRIBUTION WIDTH 17.3 % (11.6-14.6)
[2017-05-22] MEDS: ACETAMINOPHEN 650MG/20.3ML UDC PO PRN (13:20)
[2017-05-22 15:58] LABS: AMMONIA 125 uMol/L (<32)
== END 2017-05-22 23:40 | DRG 4 ==
LOC: ER 14:59 → CVICU 04-30 02:38 → ENRESERV 04-30 02:38 → 5EST 05-16 13:25
PROVIDERS: ADMIT Family Medicine; ATTEND Family Medicine
PROC: 5A1955Z Respiratory Ventilation, Greater than 96 Consecutive Hours (ICD-10-PCS; principal; 2017-04-29)
PROC: 0BH17EZ Insertion of Endotracheal Airway into Trachea, Via Natural or Artificial Opening (ICD-10-PCS; 2017-04-29)
PROC: 02HV33Z Insertion of Infusion Device into Superior Vena Cava, Percutaneous Approach (ICD-10-PCS; 2017-05-04)
PROC: B548ZZA Ultrasonography of Superior Vena Cava, Guidance (ICD-10-PCS; 2017-05-04)
PROC: 0DH68UZ Insertion of Feeding Device into Stomach, Via Natural or Artificial Opening Endoscopic (ICD-10-PCS; 2017-05-12)
PROC: 0B110F4 Bypass Trachea to Cutaneous with Tracheostomy Device, Open Approach (ICD-10-PCS; 2017-05-14)
DX: A41.9 Sepsis, unspecified organism (principal); K72.00 Acute and subacute hepatic failure without coma; J69.0 Pneumonitis due to inhalation of food and vomit; J95.851 Ventilator associated pneumonia; K85.90 Acute pancreatitis without necrosis or infection, unspecified; N17.9 Acute kidney failure, unspecified; E46 Unspecified protein-calorie malnutrition; Z76.82 Awaiting organ transplant status; J96.02 Acute respiratory failure with hypercapnia; J96.01 Acute respiratory failure with hypoxia; K76.6 Portal hypertension; D68.9 Coagulation defect, unspecified; E87.0 Hyperosmolality and hypernatremia; F11.20 Opioid dependence, uncomplicated; I47.1 Supraventricular tachycardia; I48.92 Unspecified atrial flutter; N39.0 Urinary tract infection, site not specified; R18.8 Other ascites; Z99.11 Dependence on respirator [ventilator] status; Z68.44 Body mass index [BMI] 60.0-69.9, adult; I50.9 Heart failure, unspecified; B19.20 Unspecified viral hepatitis C without hepatic coma; D69.59 Other secondary thrombocytopenia; E11.649 Type 2 diabetes mellitus with hypoglycemia without coma; E66.01 Morbid (severe) obesity due to excess calories; E11.65 Type 2 diabetes mellitus with hyperglycemia; E78.1 Pure hyperglyceridemia; E83.39 Other disorders of phosphorus metabolism; E87.70 Fluid overload, unspecified; F17.210 Nicotine dependence, cigarettes, uncomplicated; G47.33 Obstructive sleep apnea (adult) (pediatric); I48.91 Unspecified atrial fibrillation; K74.60 Unspecified cirrhosis of liver; K76.0 Fatty (change of) liver, not elsewhere classified; I95.9 Hypotension, unspecified; R74.0 Nonspecific elevation of levels of transaminase and lactic acid dehydrogenase [LDH]; I11.0 Hypertensive heart disease with heart failure; B18.2 Chronic viral hepatitis C; R13.10 Dysphagia, unspecified; I83.90 Asymptomatic varicose veins of unspecified lower extremity; R16.1 Splenomegaly, not elsewhere classified; K21.9 Gastro-esophageal reflux disease without esophagitis; Z83.3 Family history of diabetes mellitus; Z91.19 Patient's noncompliance with other medical treatment and regimen; Z85.05 Personal history of malignant neoplasm of liver; Z90.49 Acquired absence of other specified parts of digestive tract; Z79.899 Other long term (current) drug therapy
CPT/HCPCS: 31500; 36415; 36556; 36569; 36600; 51702; 70450; 70551; 71045; 71250; 71275; 74176; 76700; 76937; 80048; 80053; 80061; 80076; 80202; 80305; 81001; 82140; 82150; 82248; 82270; 82375; 82550; 82553; 82805; 82962; 83605; 83690; 83735; 83880; 83935; 84100; 84134; 84300; 84443; 84478; 84484; 85025; 85379; 85384; 85610; 85730; 86705; 86709; 86803; 87015; 87040; 87045; 87070; 87086; 87340; 87427; 87449; 87804; 89055; 93005; 93306; 94002; 94003; 94640; 96361; 96365; 96368; 97163; 97167; 97530; 99285; A4216; A6261; C1725; C9113; G0482; J0330; J0690; J0692; J1200; J1815; J1940; J2060; J2185; J2250; J2270; J2543; J2704; J3010; J3370; J3490; J7030; J7040; J7042; J7050; J7060; J7070; J7608; J7620; Q9963; Q9967; A4315